=== PATIENT | male | born 1980 | race Caucasian/White ===

== ENCOUNTER 2016-10-05 03:31 | Inpatient (IN) | payer OTHER ==
[~2016-10-05] VITALS: Ht 180.3 cm; Wt 108.9 kg
[~2016-10-05 03:31] MED LIST: CYCLOBENZAPRINE5 M2 PO; FERROUS SULFAT325 M3 PO; MOBIC7.5 M1 PO; MOTRIN800 MG PO; OXYCODONE HCL10 M2 PO; PERCOCET 325 MG1 TA2 PO; PERCOCET 5-3251 EACH PO; TRAMADOL HCL50 M1 PO
--- NOTE | 2016-10-05 12:25 | Operative Report ---
Operative/Inv Procedure Report Surgery Date: 10/05/16 Name of Procedure: Left total hip arthroplasty Pre-Operative Diagnosis: Avascular necrosis left hip Post-Operative Diagnosis: Same with final pathology pending Estimated Blood Loss: 150cc Surgeon/Stacker Attendant: DEVAN TAYLOR,Cristiano BOWERS PA Anesthesia: general endotracheal tube Implants: James secure fit size 7 femoral stem 127 neck angle 36+0 Biolox femoral head 54 Trident acetabular Drains: None none Specimens: Femoral head and acetabular reamings Complications: None Condition: Stable Operative Indication: Patient is a 36-year-old man with a diagnosis of avascular necrosis based on x- rays and MRI. He was treated conservatively for a period of time with medications and activity modifications. He also underwent left hip core decompression. Patient had ongoing symptoms with only minimal relief from this procedure. He also had developed gradually worsening mechanical symptoms. 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 He wished to proceed with total hip arthroplasty after risks, benefits and expectations were discussed which included but were not limited to persistent hip pain, need for subsequent surgery, infection, DVT, anesthesia risks, injury to blood vessel or nerve, leg length discrepancy and dislocation Operative/Procedure Note Note: Patient was brought to the operating room and transferred to the operating table. Once under appropriate anesthesia the patient was placed in a right lateral decubitus position with all bony pop prominences well padded. Axillary roll was placed. The left lower extremity was prepped and draped in standard fashion preoperative IV antibiotics were given prophylactically. A standard lateral incision was made for anticipated superior approach to the hip. The incision was taken down sharply to the underlying fascia. The gluteus elvis muscle was split. Retractors were placed hip was internally rotated placing the external rotators on tension. The piriformis was dissected off of the femoral attachment and reflected posteriorly. The interval between the gluteus minimus tendon and superior capsule was identified and a retractor was placed in this interval. A retractor was placed superiorly and inferiorly. A central portion of the capsule was incised and reflected posteriorly. Superior and inferior portions of the capsule were excised. Hip was dislocated. There was a deformity consistent with avascular necrosis of the femoral head. There was collapsed articular cartilage over these defects. The femoral neck cut was then made based on preoperative templating and intraoperative measurements. I was unable to expose the acetabulum with an anterior retractor and inferior retractor. Remnants of the labral tissues and soft tissues were excised from the fossa. I then started reaming with a size 46 and reamed up to a size 53 for anticipated insertion of a size 54 acetabulum. I use a 52 trial to confirm circumferential reaming. I was satisfied with this. The definitive size 54 acetabulum was impacted in place after copious irrigation was completed. I had excellent scratch fit. I placed 2 screws in the safe zone. The position of the acetabular component was confirmed based on patient's anatomy as well as the Bandy tower guide. I was satisfied with the abduction and forward flexion of the cup. Copious irrigation followed. I then placed the definitive size polyethylene component to accept a 36 mm femoral head. A lap sponges placed in the fossa to protect the polyethylene during preparation of the femur. The locking mechanism of the polyethylene was confirmed as well prior to doing this. I then internally rotated the femur and flexed the femur. Retractors were placed. I then use a box osteotome to lateralize my insertion site. I then used hand reamers up to a size 6. I needed to use power reaming due to patient' s strong bone and relatively small canal. I reamed up to a size 7. I broached to a size 7. I left the last broach in place with excellent scratch fit. I then proceeded to do a trial reduction with a 127 neck angle and a 36 mm femoral head. I was satisfied with the cheondoism of the length based on my intraoperative measurements and my preoperative templating. I was satisfied with the stability in all planes. No evidence of anterior instability with simultaneous extension and external rotation. No evidence of posterior instability to simultaneous internal rotation adduction and forward flexion to greater than 90. I then removed all trial components copious irrigation followed. The definitive size 7 secure fit femoral stem was impacted in place. This had a 127 neck angle area I was satisfied with the scratch fit. I dried the trunnion and placed the 36+0 Biolox femoral head in place the locking mechanism was confirmed. Copious irrigation followed the hip was reduced. Excellent stability in all planes. I then copiously irrigated at every level of closure. The posterior capsule and piriformis were repaired. Fascia was closed with interrupted #1 Vicryl suture. Subcutaneous tissues closed in 2 layers with 2-0 Vicryl due to the depth of the wound. Skin was closed with jodie. Appropriate dressings were applied and patient was awakened and taken to recovery room in good condition. No intraoperative complications. Blood loss was 150 mL Discharge Disposition: PACU
--- NOTE | 2016-10-05 13:17 | RADIOLOGY REPORT ---
EXAMINATION: XR HIP, LEFT CLINICAL INFORMATION: Postoperative left hip replacement COMPARISON: 04/23/2016 TECHNIQUE: Left hip radiographs, single AP view (patient supine position) FINDINGS: The components of the left total hip arthroplasty are in their expected positions. The femoral head prosthesis is well centered within the acetabular cup, which is stabilized by two superior screws. The tip of the femoral stem is well-positioned within the proximal femoral diaphysis. No evidence of acute periprosthetic fracture. The visualized left pelvic bones are intact. Mild amount of postoperative soft tissue tissue gas is seen at the left hip. There are lateral skin jodie in place. IMPRESSION: The components of the left total hip arthroplasty are in satisfactory position.
[2016-10-05 14:45] VITALS: BP 122/68
--- NOTE | 2016-10-05 14:47 | PN- Orthopedic ---
Subjective Subjective: The patient was seen this afternoon postoperatively. He reports his pain is under adequate control with current pain regiment. He is eager to work with physical therapy has no other complaints at the current time. Objective Vital Signs and I&Os Vital signs: Blood pressure 120/75, pulse 88, O2 saturation 95% on 3 L of oxygen via nasal cannula, temperature 98.7. I's and O's: 1900 ML's in of lactated Ringer's/210 ML's of urine out via Victor catheter/EBL 100 Physical Exam: Gen.: Alert and in obvious distress Skin: Warm and dry Cardiac: S1-S2 regular Pulmonary:: Bilateral breath sounds are equal with good exchange Extremities: Bilateral lower extremities are warm without calf tenderness or significant edema. Gross motor and sensory were intact. Left hip surgical dressing is clean, dry, and intact. Assessment/Plan Assessment/Plan Assessment: 36-year-old male status post left total hip arthroplasty. Postoperative patient is progressing as expected and his pain is under adequate control. Plan: Continue IV fluids and Victor catheter until the morning Advance diet as tolerated Out of bed with physical therapy patient is weightbearing as tolerated Strict I's and O's GI and DVT prophylaxis Will get 5 mg of Coumadin 1 dose tonight Follow-up morning laboratory studies and repeat dose Coumadin based on INR between 2 and 3 Continue current pain regiment Core Measures/Miscellaneous Victor Catheter Date In: 10/05/16 Still Needed? Yes Venous Thromboembolism VTE Risk Factors: Surgery VTE Contraindications: No Contraindications VTE Prophylaxis Ordered Inpt: Mech & Pharm VTE Diagnosis: No Beta Catalion Is Beta Catalino a Home Med? No Antibiotics Is Patient on Antibiotics? Yes If Yes: prophylaxis
[2016-10-05 16:56] VITALS: BP 116/80
[2016-10-05 19:07] VITALS: BP 120/70
[2016-10-05 21:16] VITALS: BP 120/80
[2016-10-06 01:17] VITALS: BP 116/82
[2016-10-06 05:25] VITALS: BP 120/70
[2016-10-06 08:05] LABS: ABSOLUTE BASOPHIL COUNT 0 /CUMM (0.0-0.2); ABSOLUTE EOSINOPHIL COUNT 0.1 /CUMM (0.0-0.7); ABSOLUTE GRANULOCYTE CT 7.2 /CUMM (1.4-6.5); ABSOLUTE LYMPH COUNT 2.4 /CUMM (1.2-3.4); ABSOLUTE MONOCYTE COUNT 1.3 /CUMM (0.10-0.60); BASOPHIL % 0.4 % (0.0-2.0); EOSINOPHIL % 1.1 % (0-5); GRANULOCYTE % 65.1 % (42.2-75.2); HEMATOCRIT 35.3 % (42-52); MEAN CORPUSCULAR HGB 31.7 PG (27.0-31.0); MEAN CORPUSCULAR HGB CONC 34.5 G/DL (33.0-37.0); MEAN CORPUSCULAR VOLUME 91.8 FL (80.0-94.0); MEAN PLATELET VOLUME 7.6 FL (7.4-10.4); PLATELET COUNT 213 /CUMM (130-400); RBC DISTRIBUTION WIDTH 12.9 % (11.5-14.5); RED BLOOD CELL CT 3.85 /CUMM (4.70-6.10); WHITE BLOOD CELL COUNT 11.1 /CUMM (4.8-10.8)
[2016-10-06 08:17] LABS: PT 11.5 SEC (9.4-12.5)
--- NOTE | 2016-10-06 08:17 | PN- Orthopedic ---
See Addendum Subjective Subjective: NAEO. Patient without new c/o. Pain not well controlled overnight and did not sleep well. Pain is improved at this time. Denies numbness/tingling in LLE. Tolerating diet without n/v. +flatus, no BM. Ambualted with PT yesterday. Denies CP/SOB. Objective Vital Signs and I&Os Vital Signs Date Time Temp Pulse Resp B/P Pulse O2 O2 Flow FiO2 Ox Delivery Rate 10/06 0525 98.2 86 18 120/70 93 Room Air 10/06 0117 98.4 90 18 116/82 94 Room Air 10/05 2116 98.3 88 20 120/80 93 Room Air 10/05 1907 98.8 107 20 120/70 94 Room Air 10/05 1656 98.3 103 20 116/80 92 Room Air 10/05 1445 Nasal 3.0L Cannula 10/05 144 97.4 102 20 122/68 97 Nasal 3.0L Cannula Intake & Output 10/06 1600 10/06 0800 10/06 0000 10/05 1600 10/05 0800 10/05 0000 Intake Total 1650 Output Total 1550 1200 Balance -1550 450 Intake, IV 850 Intake, Oral 800 Output, Urine 1550 1200 Patient 240 lb Weight Physical Exam: General: NAD, comfortable, A&Ox3 Chest: NRD, breathing comforably on RA. Heart S1S2 normal. Abdomen: soft, nontender, nondistended. Ext: Left hip dressing c/d/i. Left thigh softly swollen, compartments soft. No calve swelling/TTP, neurovascularly intact bilateral lower extremities Current Medications: Current Medications Sig/Femi Start time Last Medication Dose Route Stop Time Status Admin Acetaminophen 1,000 MG .STK-MED ONE 10/05 928 DC IV 10/05 929 Al Hydroxide/Mg 30 ML Q6P PRN 10/05 144 AC Hydroxide PO Dexamethasone 4 MG .STK-MED ONE 10/05 929 DC IM 10/05 09 Dextrose/Lactated 1,000 ML Q13H 10/05 144 AC 10/06 Ringer's IV 0345 Docusate Sodium 100 MG DAILY NEEDED PRN 10/05 144 AC PO Fentanyl Citrate 100 MCG .STK-MED ONE 10/05 927 DC IM 02/13 0929 Fentanyl Citrate 250 MCG .STK-MED ONE 10/05 0928 DC IM 10/05 0929 Hydromorphone HCl 2 MG .STK-MED ONE 10/05 1231 DC IM 10/05 1232 Hydromorphone HCl 2 MG .STK-MED ONE 10/05 0928 DC IM 10/05 09 Midazolam HCl 2 MG .STK-MED ONE 10/05 0929 DC IM 10/05 0930 Morphine Sulfate 2 MG Q3P PRN 10/05 1445 AC IV Morphine Sulfate 4 MG Q3P PRN 10/05 1445 AC 10/06 IV 0600 Ondansetron HCl 4 MG Q6P PRN 10/05 1445 AC IV Oxycodone/ 1 TAB Q4P PRN 10/05 1445 AC 10/05 Acetaminophen PO 1743 Oxycodone/ 2 TAB Q4P PRN 10/05 1445 AC 10/06 Acetaminophen PO 0752 Polyethylene Glycol 17 GM DAILY NEEDED PRN 10/05 1445 AC PO Senna/Docusate Sodium 2 TAB AT BEDTIME NEED.. 10/05 1445 AC PO Tranexamic Acid 1,000 MG .STK-MED ONE 10/05 0930 DC IV 10/05 0931 Vancomycin HCl 1,000 MG ONCE ONE 10/05 2200 DC 10/05 Dextrose/Water 250 ML IV 10/05 2259 2131 Vancomycin HCl 1,000 MG ONCE 10/05 0000 DC Dextrose/Water 250 ML IV 10/05 2359 Warfarin Sodium 5 MG COUMADIN 1700 ONE 10/05 1700 DC 10/05 PO 10/05 1701 1601 Results Last 48 Hours of Labs: Laboratory Tests 10/06 0625 Chemistry Sodium (137 - 145 mmol/L) 140 Potassium (3.5 - 5.1 mmol/L) 3.8 Chloride (98 - 107 mmol/L) 103 Carbon Dioxide (22 - 30 mmol/L) 25 Anion Gap (5 - 16) 12 BUN (9 - 20 mg/dL) 9 Creatinine (0.7 - 1.2 mg/dL) 0.7 Estimated GFR (>60 ml/min) Pending BUN/Creatinine Ratio (7 - 25 %) 12.9 Coagulation PT Pending INR Pending Hematology CBC w Diff Pending WBC Pending RBC Pending Hgb Pending Hct Pending MCV Pending MCH Pending RDW Pending Plt Count Pending MPV Pending PUBS MCHC Pending Assessment/Plan Assessment/Plan 36yo M POD#1 s/p left total hip arthroplasty. AVSS, patient progressing well. - pain control - PRN zofran - bowel regimen - I/O's - DC IVF - OOB with PT - f/u INR, dose coumadin for INR 2-3 - ALPS - possibly dc home today if cleared by PT - Will d/w attending Core Measures/Miscellaneous Victor Catheter Date In: 10/05/16 Venous Thromboembolism VTE Risk Factors: Surgery VTE Contraindications: No Contraindications VTE Prophylaxis Ordered Inpt: Mech & Pharm VTE Diagnosis: No Beta Catalino Is Beta Catalino a Home Med? No Antibiotics Is Patient on Antibiotics? No
--- NOTE | 2016-10-06 08:27 | Patient Discharge Instructions ---
Discharge Instructions General Discharge Information You were seen/treated for: Left hip AVN You had these procedures: 10/06/16 Left total hip arthroplasty Watch for these problems: Redness, swelling, fever, signs of infection. Uncontrolled pain, Excessive bleeding. Decreased range of motion or unable to bear weight. Chest pain, shortness of breath. Call Surgeon to remove: [place] (14 days) Do not soak the wound: Yes No bath, but you may shower: Yes Other wound care: Daily dressing changes starting 10/07/16 Diet Continue normal diet: Yes Activity Activity Self Limited: Yes Activity Limited to: Weight bear as tolerated Additional ACTIVITY Info: No running or jogging. Hip precautions. Acute Coronary Syndrome Inclusion Criteria At DC or during hospital stay patient has or had the following: ACS DIAGNOSIS No Discharge Core Measures Meds if any: Prescribed or Continued at Discharge Meds if any: NOT Prescribed or Continued at Discharge Congestive Heart Failure Inclusion Criteria At DC or during hospital stay patient has or had the following: CHF DIAGNOSIS No Discharge Core Measures Meds if any: Prescribed or Continued at Discharge Meds if any: NOT Prescribed or Continued at Discharge Cerebrovascular accident Inclusion Criteria At DC or during hospital stay patient has or had the following: CVA/TIA Diagnosis No Discharge Core Measures Meds if any: Prescribed or Continued at Discharge Meds if any: NOT Prescribed or Continued at Discharge Venous thromboembolism Inclusion Criteria VTE Diagnosis No VTE Type NONE VTE Confirmed by (Test) NONE Discharge Core Measures - Per Current guidelines, there needs to be overlap - treatment for the first 5 days of Warfarin therapy. - If discharged on Warfarin prior to 5 days of - overlap therapy, the patient will need to be - assessed for post discharge needs including - *Post discharge parental anticoagulation - *Warfarin and/or parental anticoagulation education - *Follow up date to check INR post discharge At least 5 days overlap therapy as Inpatient No Meds if any: Prescribed or Continued at Discharge Note: Overlap Therapy is Warfarin and Anticoagulant Meds if any: NOT Prescribed or Continued at Discharge
[2016-10-06] MEDS ORDERED: COLACE100 M1 PO (08:28)
[2016-10-06] MEDS ORDERED: OXYCODONE HCL5 M1 PO (08:28)
[2016-10-06] MEDS ORDERED: COUMADIN5 M2 PO (08:28)
[2016-10-06] MEDS ORDERED: RW (08:30)
--- NOTE | 2016-10-06 08:33 | Surg Short-stay <48hrs Dis Sum ---
Visit Information Visit Dates Admission Date: 10/05/16 Discharge Date: 10/06/16 Surgical Short Stay DC Summary Admission Diagnosis: Left hip avascular necrosis Final Diagnosis: Left hip avascular necrosis Procedure(s): 10/05/2016 Left total hip arthroplasty Summary/Significant Findings: Patient admitted to floor following procedure below. Patient ambulated with PT upon arrival to the floor. Patient continued to progress well. Upon discharge patient is afebrile, tolerating diet, pain controlled, ambulating well with rolling walker and PT. Condition at Discharge: Good Discharge Disposition: home health services Discharge instructions provided to patient/family: Yes Post discharge follow-up plan: Call office to schedule/confirm appointment
[2016-10-06 09:00] VITALS: BP 122/84
[2016-10-06] MEDS ORDERED: OXYCONTIN20 M1 PO (12:26)
[2016-10-06 13:00] VITALS: BP 126/82
== END 2016-10-06 15:35 | disposition home health service (06) | DRG 301 ==
LOC: ENRESERVTM → ENRESERVDT → SDA 03:31 → ENPENDDIS 03:31 → 2NA 14:24
PROVIDERS: Physician Assistant Surgical; ADMIT Orthopaedic Surgery
PROC: 0SRB04A Replacement of Left Hip Joint with Ceramic on Polyethylene Synthetic Substitute, Uncemented, Open Approach (ICD-10-PCS; principal; 2016-10-05)
DX: M87.352 Other secondary osteonecrosis, left femur (principal); I10 Essential (primary) hypertension; F17.210 Nicotine dependence, cigarettes, uncomplicated
CPT/HCPCS: 2NAP; 36415; 73501; 82436; 87086; 88305; 97110-GO; 97116-GO; 97161-GP; 97530-GO; J0131; J0171; J1100; J1885; J2405; J2795; J3370; J7060

== ENCOUNTER 2016-11-25 20:40 | Emergency (ER) | payer OTHER ==
[~2016-11-25] VITALS: Ht 182.9 cm; Wt 108.9 kg
[~2016-11-25 20:40] MED LIST changes: +COLACE100 M1 PO; +COUMADIN5 M2 PO; +OXYCODONE HCL5 M1 PO; +OXYCONTIN20 M1 PO; +RW
--- NOTE | 2016-11-25 21:12 | ED HAND/WRIST INJURY COMPLAINT ---
See Addendum History of Present Illness General Chief Complaint: Hand or Wrist Injury Stated Complaint: R HAND INJURY Source: patient Exam Limitations: no limitations Vital Signs & Intake/Output Vital Signs & Intake/Output Vital Signs Date Time Temp Pulse Resp B/P Pulse O2 O2 Flow FiO2 Ox Delivery Rate 11/25 2058 99.0 101 20 102/78 96 Room Air Allergies Coded Allergies: Penicillins (Severe, ANAPHYLAXIS 04/23/16) Reconcile Medications Cyclobenzaprine HCl 5 MG TABLET 1 TAB PO TIDPRN PAIN (Reported) Doxycycline Hyclate 100 MG CAPSULE 1 CAP PO BID prophylaxis Meloxicam 7.5 MG TABLET 1 TAB PO DAILY PAIN (Reported) Oxycodone HCl 5 MG TABLET 1 TAB PO BIDP PRN PAIN (Reported) Triage Note: RECEIVED 36 YO MALE C/O HE SMASHED THE TIP OF HIS RIGHT PINKY FINGER WITH A HAMMER ABOUT 8:30 AM TODAY. PT REPORTS FINGERNAIL CUT INTO FINGER. FULL ROM NOTED TO FINGER. Triage Nurses Notes Reviewed? yes Occurred: this morning Duration: hour(s): (12) Timing: no prior history Injury Environment: home Severity: moderate Severity Numbers: 6 Pain/Injury Location: Right: 5th finger. Context: crush Modifying Factors: Improves With: immobilization. Worsens With: movement. HPI: Patient is a 36-year-old male presenting to the emergency Department chief complaint of right fifth finger pain, bleeding since this morning around 8 AM. He reports that he was on a ladder and actually slipped and hit his right pinky finger with a hammer. Pain is achy throbbing worse with movement. Decided to come in for evaluation. Denies taking anything for pain prior to arrival. No numbness or tingling. Denies any other injury. Past History Travel History Traveled to [place] past 21 day No Medical History Any Pertinent Medical History? see below for history Neurological: NONE EENT: NONE Cardiovascular: hypertension, syncope Respiratory: NONE Gastrointestinal: GERD Hepatic: NONE Renal: NONE Musculoskeletal: VASCULAR NECROSIS BI. HIP Psychiatric: NONE Endocrine: NONE Blood Disorders: NONE Cancer(s): NONE CARPENTER BRIDGE/Reproductive: NONE History of MRSA: No History of VRE: No History of CDIFF: No Surgical History Surgical History: core decompression of left hip due to avascular necrosis. Psychosocial History Who do you live with Significant Other What is your primary language Syrian Tobacco Use: Current Daily Use Daily Tobacco Use Amount/Type: => 5 Cigarettes daily Family History Hx Contributory? No Review of Systems Review of Systems Constitutional: Reports: no symptoms. Comments Review of systems: See HPI, All other systems negative. Constitutional, no chills fever or weight loss HEENT: No visual changes no sore throat no congestion Cardiovascular: No chest pain Skin, no jaundice no rashes Respiratory: No dyspnea cough sputum or hemoptysis GI: No nausea no vomiting Muscle skeletal: no back pain, no neck pain, Neurologic: No numbness Immunology: No splenectomy or history of AIDS Physical Exam Physical Exam General Appearance: well developed/nourished, no apparent distress, alert, awake , comfortable Hand Left: normal inspection, normal range of motion Hand Right: lacerations Comments: Well-developed well-nourished no apparent distress. HEENT: Atraumatic, extraocular motion intact Neck: Supple, no lymphadenopathy Back: Nontender Respiratory: No respiratory distress Extremities: Moderate edema noted to the distal tip of the right fifth finger, full range of motion. Nail is in place, small amount of bleeding on both sides of the nail. Radial pulses are 2+ in the upper extremities bilaterally. Neuro: Alert and oriented x3 Psych: Mood affect normal, normal memory normal judgment. Progress Differential Diagnosis: finger fracture, laceration, abrasion, nail avulsion, dislocation, contusion Plan of Care: Current Medications Sig/Femi Start time Last Medication Dose Stop Time Status Admin Doxycycline Hyclate 100 MG ONCE ONE 11/25 2214 UNVr (Vibramycin) 11/26 2215 Diagnostic Imaging: Viewed by Me: Radiology Read. Discussed w/RAD: Radiology Read. Radiology Impression: PATIENT: MABEL AQUINO PRESENT AGE: 36 PATIENT ACCOUNT NO: [id number] : 81 LOCATION: [facility] ORDERING PHYSICIAN: TEE AMADOR SERVICE DATE: 11/25/16 EXAM TYPE: RAD - XRY-FINGERS, RIGHT EXAMINATION: XR FIFTH FINGER, RIGHT CLINICAL INFORMATION: Right fifth finger injury. COMPARISON: None. TECHNIQUE: 4 views of the right fifth finger. FINDINGS: Multiple views of the right fifth finger demonstrate a minimally displaced fracture involving the distal tuft of the right fifth finger. This fracture is visualized along the palmar aspect of the digit. There is moderate soft tissue swelling surrounding the digit. No radiopaque foreign bodies. No extension of the fracture into the joint spaces and no subluxation or dislocation of the right fifth finger. IMPRESSION: Acute fracture involving the distal tuft of the right fifth finger, along the palmar aspect of the digit. No appreciable extension of the fracture into the joint space is no appreciable subluxation or dislocation of the digit. Moderate soft tissue swelling surrounding the digit. Comments: Patient has tuff fracture on x-ray. Nail is intact. Patient will be treated prophylactically with antibiotics for questionable open fracture. Dressed with Xeroform, bacitracin and splinted. He'll follow up with orthopedics. Departure Departure Time of Disposition: 2153 Disposition: HOME OR SELF CARE Condition: Stable Clinical Impression Primary Impression: Closed fracture of tuft of distal phalanx of finger Qualifiers: Encounter type: initial encounter Qualified Code: S62.639A - Displaced fracture of distal phalanx of unspecified finger, initial encounter for closed fracture Referrals: PATIENT HAS NO PRIMARY CARE DR (PCP/Family) EMMY TAYLOR,LEOBARDO Brown Additional Instructions: Follow-up with orthopedics call to make an appointment. Make sure recall the orthopedic bed planning on doing her hip surgery on Wednesday to let them know about this finger fracture and the fact that you're on antibiotics. Keep finger elevated and ice several times a day to help without swelling. Return for worsening symptoms or concerns. Departure Forms: Customer Survey General Discharge Information Prescriptions: Current Visit Scripts Doxycycline Hyclate 1 CAP PO BID #14 CAP Procedures Splinting Location: right fifth finger Manual Alignment Performed: No Pre-Made Type: metal Splint: finger splint Splint Applied By: splint applied by me Pre-Proc Neuro Vasc Exam: normal Post-Proc Neuro Vasc Exam: normal Progress: Tolerated procedure well.
[2016-11-25] MEDS ORDERED: MELOXICAM7.5 M1 PO (21:18)
[2016-11-25] MEDS ORDERED: CYCLOBENZAPRINE5 M2 PO (21:19)
[2016-11-25] MEDS ORDERED: OXYCODONE HCL5 M1 PO (21:19)
[2016-11-25] MEDS ORDERED: KEFLEX500 M1 PO (21:57)
--- NOTE | 2016-11-25 21:57 | RADIOLOGY REPORT ---
EXAMINATION: XR FIFTH FINGER, RIGHT CLINICAL INFORMATION: Right fifth finger injury. COMPARISON: None. TECHNIQUE: 4 views of the right fifth finger. FINDINGS: Multiple views of the right fifth finger demonstrate a minimally displaced fracture involving the distal tuft of the right fifth finger. This fracture is visualized along the palmar aspect of the digit. There is moderate soft tissue swelling surrounding the digit. No radiopaque foreign bodies. No extension of the fracture into the joint spaces and no subluxation or dislocation of the right fifth finger. IMPRESSION: Acute fracture involving the distal tuft of the right fifth finger, along the palmar aspect of the digit. No appreciable extension of the fracture into the joint space is no appreciable subluxation or dislocation of the digit. Moderate soft tissue swelling surrounding the digit.
[2016-11-25] MEDS ORDERED: DOXYCYCLINE HY100 M2 PO (22:01)
[2016-11-25 22:09] VITALS: BP 105/88
== END 2016-11-25 22:10 ==
LOC: ERH 20:40
DX: S62.636A Displaced fracture of distal phalanx of right little finger, initial encounter for closed fracture (principal); W22.8XXA Striking against or struck by other objects, initial encounter; Y93.89 Activity, other specified; Y92.9 Unspecified place or not applicable
CPT/HCPCS: 73140-RT

== ENCOUNTER 2016-11-30 01:13 | Inpatient (IN) | payer OTHER ==
[~2016-11-30] VITALS: Ht 182.9 cm; Wt 108.9 kg
[~2016-11-30 01:13] MED LIST changes: +DOXYCYCLINE HY100 M2 PO; +KEFLEX500 M1 PO; +MELOXICAM7.5 M1 PO
--- NOTE | 2016-11-30 16:55 | PN- Orthopedic ---
Subjective Subjective: POST-OP NOTE (patient currently in pacu) Reports some right hip discomfort. No dizziness. No shortness of breath. No chest pains. Reports completing a week long duration of doxycycline for open fracture of his right 5th finger. Currently in pacu awaiting transfer upstairs. Objective Vital Signs and I&Os pacu sheet reviewed (vss) Physical Exam: General - alert & oriented x 3. comfortable. no acute distress. Lungs - clear bilaterally. no w/r/r. Cardiac - s1s2. reg. Abdomen - soft. nontender. - zamora draining clear, yellow urine. Extremities - R hip dressing c/d/i. no hematoma. nvi. calves soft and nontender b/l. Assessment/Plan Assessment/Plan This 36 year old white male is POD#0 s/p right total hip replacement advance as tolerated pain control as ordered (oxycodone CR / percocet) vanco x 1 carroll-operatively coumadin 5 mg tonight f/u labs in am remove zamora in am PT eval dressing change POD#2 will d/w Core Measures/Miscellaneous Venous Thromboembolism VTE Risk Factors: Surgery VTE Contraindications: No Contraindications VTE Diagnosis: No Beta Catalino Is Beta Catalino a Home Med? No Antibiotics Is Patient on Antibiotics? Yes If Yes: prophylaxis
--- NOTE | 2016-11-30 17:41 | RADIOLOGY REPORT ---
EXAMINATION: XR HIP, RIGHT CLINICAL INFORMATION: Status post right total hip arthroplasty. COMPARISON: None TECHNIQUE: Single AP view of the right hip. FINDINGS: A right total hip arthroplasty is present in expected position. No hardware complication is seen. Alignment is normal. IMPRESSION: Expected appearance status post right JOSEPH.
[2016-11-30 18:13] VITALS: BP 162/88
[2016-11-30 21:41] VITALS: BP 150/70
[2016-12-01 00:13] VITALS: BP 130/94
[2016-12-01 01:48] VITALS: BP 120/80
[2016-12-01 07:59] LABS: ABSOLUTE BASOPHIL COUNT 0 /CUMM (0.0-0.2); ABSOLUTE EOSINOPHIL COUNT 0.2 /CUMM (0.0-0.7); ABSOLUTE GRANULOCYTE CT 6.2 /CUMM (1.4-6.5); ABSOLUTE MONOCYTE COUNT 0.9 /CUMM (0.10-0.60); BASOPHIL % 0.3 % (0.0-2.0); EOSINOPHIL % 1.6 % (0-5); GRANULOCYTE % 67.3 % (42.2-75.2); HEMATOCRIT 36.5 % (42-52); MEAN CORPUSCULAR HGB 30.7 PG (27.0-31.0); MEAN CORPUSCULAR HGB CONC 33.9 G/DL (33.0-37.0); MEAN CORPUSCULAR VOLUME 90.5 FL (80.0-94.0); MEAN PLATELET VOLUME 7.4 FL (7.4-10.4); PLATELET COUNT 238 /CUMM (130-400); RBC DISTRIBUTION WIDTH 13.4 % (11.5-14.5); RED BLOOD CELL CT 4.04 /CUMM (4.70-6.10); WHITE BLOOD CELL COUNT 9.3 /CUMM (4.8-10.8)
--- NOTE | 2016-12-01 08:02 | PN- Orthopedic ---
See Addendum Subjective Subjective: POD #1 s/p right THR for AVN. Resting comfortably in bed just getting off phone , although states pain 03/01. Nauseated and vomited overnight after diet gingerale, but none since. Denies F/C, CP/SOB. Yet to ambulate. Is due to void spontaneously (zamora removed early this morning). Objective Vital Signs and I&Os Vital Signs Date Time Temp Pulse Resp B/P Pulse O2 O2 Flow FiO2 Ox Delivery Rate 12/01 0148 99.2 88 20 120/80 93 Room Air 12/01 0013 98.0 94 20 130/94 95 Room Air 11/30 2141 97.6 90 20 150/70 92 Room Air 11/30 1813 97.4 100 20 162/88 90 Room Air Intake & Output 12/01 1600 12/01 0800 12/01 0000 11/30 1600 11/30 0800 11/30 0000 Intake Total 1400 Output Total 2100 1300 Balance -700 -1300 Intake, IV 600 Intake, Oral 800 Output, Urine 2100 1300 Patient 240 lb Weight Physical Exam: Gen: AAOx3 in NAD Cor: S1+S2+ Lungs: CTA stefani Abd: soft, NT, ND, +Bs x4 Ext: right hip dressing C/D/I. Thigh and calf compartment soft. Palpable DP/PT pulses stefani. Feet warm, sensation intact. Dorsiflexion and plantar flexion intact. Current Medications: Current Medications Sig/Femi Start time Last Medication Dose Route Stop Time Status Admin Acetaminophen 1,000 MG .STK-MED ONE 11/30 1204 DC IV 11/30 1205 Al Hydroxide/Mg 30 ML Q6P PRN 11/30 1699 AC Hydroxide PO Dextrose/Lactated 1,000 ML Q13H 11/30 170 DC 11/30 Ringer's IV 2056 Docusate Sodium 100 MG BID 11/30 2199 AC 11/30 PO 2054 Docusate Sodium 100 MG DAILY NEEDED PRN 11/30 1699 DC PO Fentanyl Citrate 250 MCG .STK-MED ONE 11/30 1203 DC IM 11/30 1204 Hydromorphone HCl 2 MG .STK-MED ONE 11/30 1628 DC IM 11/30 1629 Hydromorphone HCl 2 MG .STK-MED ONE 11/30 1602 DC IM 11/30 1603 Hydromorphone HCl 2 MG .STK-MED ONE 11/30 1202 DC IM 11/30 1203 Midazolam HCl 2 MG .STK-MED ONE 11/30 1203 DC IM 11/30 1204 Morphine Sulfate 2 MG Q3P PRN 11/30 1700 AC IV Morphine Sulfate 4 MG Q3P PRN 11/30 1700 AC 12/01 IV 0622 Nicotine 14 MG DAILY 11/30 2045 AC 11/30 TOP 2224 Ondansetron HCl 4 MG Q6P PRN 11/30 170 AC 11/30 IV 2010 Oxycodone HCl 20 MG Q12 11/30 2200 AC 11/30 PO 2055 Oxycodone/ 1 TAB Q4P PRN 11/30 170 AC Acetaminophen PO Oxycodone/ 2 TAB Q4P PRN 11/30 1700 AC 12/01 Acetaminophen PO 0802 Polyethylene Glycol 17 GM DAILY 12/01 1000 UNVr PO Polyethylene Glycol 17 GM DAILY NEEDED PRN 11/30 1700 DC PO Senna/Docusate Sodium 2 TAB AT BEDTIME NEED.. 11/30 170 AC PO Tranexamic Acid 1,000 MG .STK-MED ONE 11/30 1203 DC IV 11/30 1204 Vancomycin HCl 1,000 MG ONCE ONE 12/01 0200 DC 12/01 Sodium Chloride 250 ML IV 12/01 0259 0022 Vancomycin HCl 1,000 MG ONCE 11/30 0000 DC Sodium Chloride 250 ML IV 11/30 2359 Warfarin Sodium 5 MG COUMADIN 1700 ONE 11/30 1700 DC 11/30 PO 11/30 1701 1843 Results Last 48 Hours of Labs: Laboratory Tests 12/01 0650 Chemistry Sodium Pending Potassium Pending Chloride Pending Carbon Dioxide Pending Anion Gap Pending BUN Pending Creatinine Pending BUN/Creatinine Ratio Pending Coagulation PT Pending INR Pending Hematology CBC w Diff NO MAN DIFF REQ WBC (4.8 - 10.8 /CUMM) 9.3 RBC (4.70 - 6.10 /CUMM) 4.04 L Hgb (14.0 - 18.0 G/DL) 12.4 L Hct (42 - 52 %) 36.5 L MCV (80.0 - 94.0 FL) 90.5 MCH (27.0 - 31.0 PG) 30.7 RDW (11.5 - 14.5 %) 13.4 Plt Count (130 - 400 /CUMM) 238 MPV (7.4 - 10.4 FL) 7.4 Gran % (42.2 - 75.2 %) 67.3 Lymphocytes % (20.5 - 51.1 %) 21.2 Monocytes % (1.7 - 9.3 %) 9.6 H Eosinophils % (0 - 5 %) 1.6 Basophils % (0.0 - 2.0 %) 0.3 Absolute Granulocytes (1.4 - 6.5 /CUMM) 6.2 Absolute Lymphocytes (1.2 - 3.4 /CUMM) 2.0 Absolute Monocytes (0.10 - 0.60 /CUMM) 0.9 H Absolute Eosinophils (0.0 - 0.7 /CUMM) 0.2 Absolute Basophils (0.0 - 0.2 /CUMM) 0 PUBS MCHC (33.0 - 37.0 G/DL) 33.9 Assessment/Plan Assessment/Plan A: POD #1 s/p right THR; AVSS. Plan: Due to void. Stop IVF. PT/OT today. Case management to see for dispo plans. Dressing change tomorrow. Regular diet. Core Measures/Miscellaneous Venous Thromboembolism VTE Risk Factors: Surgery VTE Contraindications: No Contraindications VTE Diagnosis: No Beta Catalino Is Beta Catalino a Home Med? No Antibiotics Is Patient on Antibiotics? Yes If Yes: prophylaxis
[2016-12-01 08:30] LABS: PT 11.8 SEC (9.4-12.5)
[2016-12-01 09:57] VITALS: BP 140/80
[2016-12-01] MEDS ORDERED: OXYCONTIN20 M1 PO (10:09)
[2016-12-01] MEDS ORDERED: COUMADIN5 M2 PO (10:09)
--- NOTE | 2016-12-01 10:29 | Patient Discharge Instructions ---
Discharge Instructions General Discharge Information You were seen/treated for: Right hip pain secondary to avascular necrosis You had these procedures: Right total hip replacement Watch for these problems: Increasing pain, redness, warmth, swelling. Inability to bear weight on right leg. Drainage of any type from incision. Fever greater than 101.5. Do not soak the wound: Yes No bath, but you may shower: Yes Other wound care: Keep wound clean and dry Special Instructions: You are taking a blood thinning medication called Coumadin. Another name for this medication is Warfarin. You will take this every day, however, the dose you take each day is subject to change. It depends on labwork called INR which essentially measures how thin your blood is. Your INR will be checked at a minimum of 2-3 times per week. The results will be sent to Dr. Martínez who will determine how much coumadin you are to be taking each day. Therefore, please await specific instructions regarding your daily doses. Diet Continue normal diet: Yes Recommended Diet: Regular Additional DIET Information: Advance as tolerated Activity Full Activity/No Limits: No Activity Self Limited: Yes Pounds, do NOT lift more than: 10 Additional ACTIVITY Info: Weight bear as tolerated on operative hip No bending greater than 90 degrees at waist No crossing legs Do not flex your leg at the hip and turn your knee inward (flexion and internal rotation) Use your abduction pillow until otherwise instructed by your surgeon. Acute Coronary Syndrome Inclusion Criteria At DC or during hospital stay patient has or had the following: ACS DIAGNOSIS No Discharge Core Measures Meds if any: Prescribed or Continued at Discharge Meds if any: NOT Prescribed or Continued at Discharge Congestive Heart Failure Inclusion Criteria At DC or during hospital stay patient has or had the following: CHF DIAGNOSIS No Discharge Core Measures Meds if any: Prescribed or Continued at Discharge Meds if any: NOT Prescribed or Continued at Discharge Cerebrovascular accident Inclusion Criteria At DC or during hospital stay patient has or had the following: CVA/TIA Diagnosis No Discharge Core Measures Meds if any: Prescribed or Continued at Discharge Meds if any: NOT Prescribed or Continued at Discharge Venous thromboembolism Inclusion Criteria VTE Diagnosis No VTE Type NONE VTE Confirmed by (Test) NONE Discharge Core Measures - Per Current guidelines, there needs to be overlap - treatment for the first 5 days of Warfarin therapy. - If discharged on Warfarin prior to 5 days of - overlap therapy, the patient will need to be - assessed for post discharge needs including - *Post discharge parental anticoagulation - *Warfarin and/or parental anticoagulation education - *Follow up date to check INR post discharge At least 5 days overlap therapy as Inpatient No Meds if any: Prescribed or Continued at Discharge Note: Overlap Therapy is Warfarin and Anticoagulant Meds if any: NOT Prescribed or Continued at Discharge
--- NOTE | 2016-12-01 10:36 | Surgical Discharge Summary ---
Visit Information Visit Dates Admission Date: 11/30/16 Discharge Date: 12/01/2016 History of Present Illness Chief Complaint: Right hip pain secondary to avascular necrosis Medical History Neurological: NONE EENT: NONE Cardiovascular: hypertension, syncope Respiratory: NONE Gastrointestinal: GERD Hepatic: NONE Renal: NONE Musculoskeletal: VASCULAR NECROSIS BI. 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 Psychosocial History Who Do You Live With? Significant Other What is Your Primary Language? Citizen Of [place] Review of Systems: See H&P Hospital Course Course Attending Physician: DEVAN TAYLOR,ROBINSON Primary Care Physician: PATIENT HAS NO PRIMARY CARE DR Hospital Course: Patient was admitted to the hospital for an elective right total hip replacement. He tolerated the procedure well. He was tansferred to the general surgical floor. His diet was advanced and tolerated. His pain was controlled with po pain medication. His vital signs were stable and within normal limits. He was evaluated and treated by physical therapy. He was deemed appropriate for discharge. Allergies: Coded Allergies: Penicillins (Severe, ANAPHYLAXIS 04/23/16) Disposition Summary Disposition Principal Diagnosis: Right hip avascular necrosis Additional Diagnosis: none Discharge Disposition: home health services Discharge Instructions General Discharge Information Code Status: Full Code Patient's Diet: Regular, advance as tolerated Patient's Activity: WBAT on right hip Follow-Up Instructions/Appts: Please call or contact Dr. Martínez office to arrange/confirm follow up appointment to be seen in 2 weeks from date of surgery. Medications at Discharge Discharge Medications: Stop taking the following medications: Cyclobenzaprine HCl (Cyclobenzaprine HCl) 5 MG TABLET ORAL THREE TIMES A DAY NEEDED Qty = 60 Oxycodone HCl (Oxycodone HCl) 5 MG TABLET ORAL 2 x Daily as needed as needed for PAIN Qty = 21 Continue taking these medications: Meloxicam (Meloxicam) 7.5 MG TABLET 1 Tablet ORAL DAILY Qty = 60 Doxycycline Hyclate (Doxycycline Hyclate) 100 MG CAPSULE 1 Capsule ORAL TWICE DAILY Qty = 14 Start taking the following new medications: Oxycodone HCl/Acetaminophen (Percocet 5-325 MG Tablet) 5 MG-325 MG TABLET 1-2 Tablet ORAL Q4-6H as needed for PAIN Qty = 36 No Refills Oxycodone HCl (Oxycontin) 20 MG TAB.ER.12H 1 Tablet ORAL TWICE DAILY Qty = 6 No Refills Warfarin Sodium (Coumadin) 5 MG TABLET 1 Tablet ORAL DAILY Qty = 30 No Refills
[2016-12-01] MEDS ORDERED: OXYCODONE HCL5 M1 PO (14:43)
--- NOTE | 2016-12-01 15:06 | Operative Report ---
Operative/Inv Procedure Report Surgery Date: 11/30/16 Name of Procedure: Right total hip arthroplasty Pre-Operative Diagnosis: Right hip avascular necrosis femoral head Post-Operative Diagnosis: Same with final pathology pending Estimated Blood Loss: 200cc Surgeon/Switch Operators Supervisor: DEVAN TAYLOR,Cristiano BOWERS Anesthesia: general endotracheal tube Implants: James secure fit size 7 femoral stem, size 56 Trident acetabulum 36+0 femoral head Biolox Drains: None Specimens: Femoral head, acetabular reamings Microbiology: Urine Complications: None Condition: Stable Operative Indication: Patient is a 36-year-old man with the diagnosis of avascular necrosis of the right femoral head. Patient had severe collapsing. Conservative measures did not provide any significant relief. He wished to proceed with total hip arthroplasty after risks, benefits and expectations were discussed with but were not limited to persistent hip pain, need for subsequent surgery, loosening, infection, DVT, anesthesia risks, injury to blood vessel or nerve, leg length discrepancy and dislocation. He recently underwent left total hip arthroplasty for the same diagnosis Operative/Procedure Note Note: Patient was brought to the operating room and transferred to the operating table. Once under appropriate anesthesia the patient was placed into a left lateral decubitus position with right side up. All bony pop prominences well- padded. Axillary roll was placed. The right lower extremity was prepped and draped in standard fashion preoperative IV antibiotics were given prophylactically. A standard lateral incision was made for anticipated superior approach to the hip. Incision was taken down sharply to the underlying fascia. The fascia was incised in line with the skin incision. Hip was internally rotated the piriformis was identified and reflected posteriorly. The interval between the gluteus minimus tendon and the superior capsule was identified and a retractor was placed here. I then this retractor inferiorly. A central portion of the posterior capsule was incised and reflected posteriorly for later repair. Inferior portions and superior portions of the posterior capsule were excised. Hip was dislocated. There was deformity of the femoral head. Femoral neck cut was made based on preoperative templating and intraoperative measurements. I then was able to visualize the acetabulum. Remnants of the labral tissues were excised. Any soft tissue was removed from the acetabular fossa. This was followed by reaming using a size 46 reamer up to a size 55 for anticipated insertion of a size 56 acetabulum. Once I was satisfied with the circumferential reaming with the trial 54 I definitively placed the 56 Trident acetabular component the proper anteversion and abduction based on my intraoperative measurements, the [place] tower and my preoperative templating. Excellent scratch fit. I placed 2 screws in the safe zone. And then after copious irrigation I placed the definitive liner for the 36 no medial femoral head. This liner mechanism locking mechanism was confirmed. Copious irrigation followed I then placed a lap sponge to protect the acetabular liner from injury during the preparation of the femur. The femur was essentially rotated and flexed. A femoral elevator was placed underneath the proximal femur and then a box osteotome was used to lateralize my insertion site. This was followed by reaming up to a size 7. I needed power reaming for the last 2 reamers due to the strength of the bone. I then broached up to a size 7. I left the [address] and did a trial reduction. I was satisfied with the stability in all planes. No evidence of anterior instability with simultaneous extension and external rotation. No signs of posterior instability with simultaneous internal rotation adduction and flexion to greater than 90. I then removed all trial components. Copious irrigation of the femoral canal followed I then placed the definitive size 7 secure fit femoral stem with the 127 neck angle. This was impacted in place with excellent scratch fit. I then dried the trunnion and placed the definitive size 36+[address] I used a Biolox to the patient's age. The hip was reduced and then again the stability was confirmed. Once I was satisfied with this copious irrigation followed. Every level of closure was followed by copious irrigation. The posterior capsule and piriformis was repaired. Fascia was closed with interrupted #1 Vicryl sutures. Subcutaneous tissues closed in 2 layers with 2-0 Vicryl and skin was closed jodie. Appropriate just his were applied and patient was awakened and taken to recovery room in good condition. Blood loss was approximately 200 mL Discharge Disposition: PACU
[2016-12-01] MEDS ORDERED: MS CONTIN30 M1 PO (15:23)
== END 2016-12-01 15:30 | disposition home health service (06) | DRG 301 ==
LOC: ENRESERVTM → ENRESERVDT → ENPENDDIS 01:13 → SDA 01:13 → 2NA 01:13 → SDA 07:00 → 2NA 18:06
PROVIDERS: Physician Assistant Surgical; ADMIT Orthopaedic Surgery
PROC: 0SR904A Replacement of Right Hip Joint with Ceramic on Polyethylene Synthetic Substitute, Uncemented, Open Approach (ICD-10-PCS; principal; 2016-11-30)
DX: M87.851 Other osteonecrosis, right femur (principal); E66.9 Obesity, unspecified; Z68.32 Body mass index [BMI] 32.0-32.9, adult; I10 Essential (primary) hypertension; F17.200 Nicotine dependence, unspecified, uncomplicated
CPT/HCPCS: 2NASP; 73501; 82436; 87086; 88305; 97116-GO; 97161-GP; 97530-GO; J0131; J2405; J3370; J7040

== ENCOUNTER 2017-08-29 15:18 | Emergency (ER) | payer OTHER ==
[~2017-08-29] VITALS: Ht 182.9 cm; Wt 111.1 kg
[~2017-08-29 15:18] MED LIST changes: +MOBIC15 M1 PO; +MS CONTIN30 M1 PO
[2017-08-29 15:59] LABS: ABSOLUTE BASOPHIL COUNT 0 /CUMM (0.0-0.2); ABSOLUTE EOSINOPHIL COUNT 0.2 /CUMM (0.0-0.7); ABSOLUTE GRANULOCYTE CT 2.9 /CUMM (1.4-6.5); ABSOLUTE LYMPH COUNT 2.5 /CUMM (1.2-3.4); ABSOLUTE MONOCYTE COUNT 0.5 /CUMM (0.10-0.60); BASOPHIL % 0.5 % (0.0-2.0); EOSINOPHIL % 3.9 % (0-5); GRANULOCYTE % 47.6 % (42.2-75.2); HEMATOCRIT 45.7 % (42-52); MEAN CORPUSCULAR HGB 33.6 PG (27.0-31.0); MEAN CORPUSCULAR HGB CONC 34.6 G/DL (33.0-37.0); MEAN CORPUSCULAR VOLUME 97.1 FL (80.0-94.0); MEAN PLATELET VOLUME 7.5 FL (7.4-10.4); PLATELET COUNT 194 /CUMM (130-400); RBC DISTRIBUTION WIDTH 13.6 % (11.5-14.5); WHITE BLOOD CELL COUNT 6.1 /CUMM (4.8-10.8)
--- NOTE | 2017-08-29 16:45 | ED GENERAL ADULT ---
History of Present Illness General Chief Complaint: General Adult Stated Complaint: COUGHING UP BLOOD Source: patient, family Exam Limitations: no limitations Vital Signs & Intake/Output Vital Signs & Intake/Output Vital Signs Date Time Temp Pulse Resp B/P B/P Pulse O2 O2 Flow FiO2 Mean Ox Delivery Rate 08/29 1909 98.3 98 16 138/68 96 Room Air 08/29 1525 98.0 102 18 160/88 98 Room Air Allergies Coded Allergies: Penicillins (Severe, ANAPHYLAXIS 04/23/16) Reconcile Medications Albuterol Sulfate (Proair Hfa) 90 MCG HFA.AER.AD 2 PUF INH Q4-6 PRN PRN cough/ sob Triage Note: PT TO TRIAGE WITH MULTIPLE COMPLAINTS. COMPLAINS OF CHRONIC HIP/ELBOW/KNEE AND BACK PAIN AND HAS NOT BEEN ABLE TO GET INTO SEE PMD TO GET PAIN MEDS. STATES THAT HE WENT TO WALK IN 2 WEEKS AGO THEY GAVE HIM ANTABUSE TO HELP HIM TO STOP DRINKING, STATES THAT HE WAS SOBER FOR 3 YEARS AND STARTED TO DRINK AGAIN IN MAY, LAST DRINK WAS 30 MINUTES AGO, PT STATES THAT HE DOES NOT WANT DETOX HERE AND JUST NEEDS MEDS TO HELP HIM STOP. ALSO STATES THAT HE WAS GIVEN 12 DIAZEPAM TO HELP HIM WITH HIS PAIN WHICH HE HAS NO MORE. ALSO STATES THAT FOR THE PAST 3 WEEKS HE HAS BEEN FEELING SOB AND HAS BEEN coughingING UP BLOOD FOR THE PAST 2 WEEKS, STATES THAT TRACE AMOUNTS. DENIES CP Triage Nurses Notes Reviewed? yes Onset: Gradual Duration: week(s): (3), changing over time, continues in ED, getting worse Timing: recent history Injury Environment: home Severity: mild, moderate No Modifying Factors: none Associated Symptoms: cough HPI: 37 year old male past medical history of alcohol abuse and hypertension presents for evaluation of multiple complaints. He states that he has been feeling short of breath for the past month. He says that symptoms started after his basement flooded and he thinks that mold might be growing in his basement. He states that he feels short of breath that is worse with exertion. He also reports associated cough. He states over the past 2 weeks she'sbeen coughing up blood- streaked sputum. He denies any chest pain or lower extremity edema recent surgery recent trauma or history of blood clots. No fevers. He is not taking any medicine for this. He is not a smoker. He also reports that for the past 3 months he started drinking alcohol again. Patient states that he has been sober for 3 years until May when he started drinking. She states that he drinks at least 12 beers per day. His last drink was 30 minutes prior to presentation. He does have a previous history of alcohol withdrawal but denies history of seizures. He is requesting a prescription for benzodiazepines help him withdraw. He does not wish to stay here for detox. He denies any suicidal or homicidal ideation. He was brought here by his who is at the bedside. Past History Travel History Traveled to [place] past 21 day No Medical History Any Pertinent Medical History? see below for history Neurological: NONE EENT: NONE Cardiovascular: hypertension, syncope Respiratory: NONE Gastrointestinal: GERD Hepatic: NONE Renal: NONE Musculoskeletal: VASCULAR NECROSIS BI. 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 Psychosocial History Who do you live with Significant Other What is your primary language Venezuelan Tobacco Use: Current Daily Use Daily Tobacco Use Amount/Type: => 5 Cigarettes daily ETOH Use: alcoholic Illicit Drug Use: denies illicit drug use Family History Hx Contributory? No Review of Systems Review of Systems Constitutional: Reports: no symptoms. EENTM: Reports: no symptoms. Respiratory: Reports: see HPI, cough, hemoptysis, short of breath. Cardiovascular: Reports: no symptoms. GI: Reports: no symptoms. Genitourinary: Reports: no symptoms. Musculoskeletal: Reports: no symptoms. Skin: Reports: no symptoms. Neurological/Psychological: Reports: no symptoms. Hematologic/Endocrine: Reports: no symptoms. Immunologic/Allergic: Reports: no symptoms. All Other Systems: Reviewed and Negative Physical Exam Physical Exam General Appearance: well developed/nourished, no apparent distress, alert, awake , intoxicated, obese Head: atraumatic, normal appearance Eyes: Bilateral: normal appearance, PERRL, EOMI. Ears, Nose, Throat: normal pharynx, normal ENT inspection, hearing grossly normal Neck: normal inspection, supple, full range of motion Respiratory: chest non-tender, no respiratory distress, wheezing (mild/faint) Cardiovascular: regular rate/rhythm (rate 104), normal peripheral pulses Peripheral Pulses: 2+ radial (R), 2+ radial (L) Gastrointestinal: normal bowel sounds, soft, non-tender, no organomegaly Back: normal inspection, normal range of motion Extremities: normal inspection, normal range of motion, no edema Neurologic/Psych: no motor/sensory deficits, awake, alert, oriented x 3, normal gait, normal mood/affect Skin: intact, normal color, warm/dry Core Measures ACS in differential dx? No CVA/TIA Diagnosis: No Sepsis Present: No Sepsis Focused Exam Completed? No Progress Differential Diagnoses I considered the following diagnoses in my evaluation of the patient: [Pneumonia , bronchitis, asthma, COPD, pulmonary embolism, alcohol abuse, alcohol withdrawal, alcohol intoxication, electrolyte abnormality] Plan of Care: Orders Procedure Date/time Status Add-on Test (ER Only) 08/29 1702 Active EKG 08/29 170 Active Add-on Test (ER Only) 08/29 1621 Active URINE DRUG SCREEN FOR ER ONLY 08/29 1530 Complete TROPONIN LEVEL 08/29 1530 Complete MAGNESIUM 08/29 1530 Complete LIPASE 08/29 1530 Complete ETHANOL 08/29 1530 Complete D-DIMER 08/29 1530 Complete COMPREHENSIVE METABOLIC PANEL 08/29 1530 Complete CBC WITHOUT DIFFERENTIAL 08/29 1530 Complete Laboratory Tests 08/29/17 1729: Urine Opiates Screen < 100.00, Methadone Screen < 40, Barbiturate Screen < 60, Ur Phencyclidine Scrn < 6.00, Amphetamines Screen < 100, U Benzodiazepines Scrn 434 H, Urine Cocaine Screen < 50, Urine Cannabis Screen < 5.00 08/29/17 1530: Anion Gap 20 H, Estimated GFR > 60, BUN/Creatinine Ratio 12.2, Glucose 144 H, Calcium 9.0, Magnesium 2.2, Total Bilirubin 0.4, AST 115 H, ALT 121 H, Alkaline Phosphatase 128 H, Troponin I < 0.01, Total Protein 7.6, Albumin 4.9, Globulin 2.7, Albumin/Globulin Ratio 1.8, Lipase 167, D-Dimer High Sensitivty < 200, CBC w Diff NO MAN DIFF REQ, RBC 4.70, MCV 97.1 H, MCH 33.6 H, RDW 13.6, MPV 7.5, Gran % 47.6, Lymphocytes % 40.5, Monocytes % 7.5, Eosinophils % 3.9, Basophils % 0.5, Absolute Granulocytes 2.9, Absolute Lymphocytes 2.5, Absolute Monocytes 0.5, Absolute Eosinophils 0.2, Absolute Basophils 0, PUBS MCHC 34.6, Serum Alcohol 248.0 Patient seen and evaluated. He is currently intoxicated with a level of 248. He does not wish to stay here for detox. Advised patient about the potential risks of alcohol withdrawal that includes seizures and possibly . Advised him he should stay for further evaluation and repeat CIWA exams. Patient does not wish to stay he's requesting benzodiazepines for outpatient treatment. Advised him that we cannot do this. He has an appointment with his primary care doctor tomorrow. He states that he will see his primary care doctor in attempt to get benzodiazepines for outpatient detox if he is unable to do this she'll return to the emergency department for admission for detox. Patient has a steady gait no slurred speech. He is his is here to give him a ride home. blood work is within normal limits including a negative d-dimer as chest x-ray is clear. EKG is stable negative troponin. Patient will be given a prescription for pro-air inhaler as well as some wheezing on exam. Patient was given a list of alcohol detox facilities. Again encourage patient to stay for alcohol detox. He is alert and oriented 3 he understands the risks. Return to the emergency department at any time for alcohol detox. Patient is nontoxic- appearing and agrees with the plan. Diagnostic Imaging: Viewed by Me: Radiology Read. Discussed w/RAD: Radiology Read. CXR Impression: PATIENT: MABEL AQUINO PRESENT AGE: 37 PATIENT ACCOUNT NO: [id number] : 81 LOCATION: [facility] ORDERING PHYSICIAN: Niko AMADOR SERVICE DATE: 08/29/17 EXAM TYPE: RAD - XRY-CHEST XRAY, TWO VIEWS EXAMINATION: XR CHEST CLINICAL INFORMATION: Cough, shortness of breath. COMPARISON: None TECHNIQUE: 2 views of the chest were obtained. FINDINGS : No significant abnormality is noted involving the heart, lungs, mediastinum, bony thorax or soft tissues. IMPRESSION: Unremarkable examination. DICTATED BY: Melecio Joseph MD DATE/TIME DICTATED:08/29/171846 BUOY TENDER:TERRA DATE/TIME TRANSCRIBED:08/29/171846 CONFIDENTIAL, DO NOT COPY WITHOUT APPROPRIATE AUTHORIZATION. Initial ED EKG: normal sinus rhythm (rate 100), nonspecific interventricular conduction delay Departure Departure Disposition: HOME OR SELF CARE Condition: Stable Clinical Impression Primary Impression: Shortness of breath Secondary Impressions: Alcohol intoxication Qualifiers: Complication of substance-induced condition: uncomplicated Qualified Code: F10.920 - Alcohol use, unspecified with intoxication, uncomplicated Referrals: Sandra Marr APRN (PCP/Family) Additional Instructions: Rest and drink plenty of fluids. Use pro-air inhaler 2 puffs every 4-6 hours as needed for cough or shortness of breath. He is recommended he stay in the emergency department for evaluation of alcohol detox. Return to the emergency department at any time for evaluation of alcohol withdrawal. Additionally see attached list of outpatient detox centers. Follow-up with primary care doctor tomorrow as scheduled. Monitor symptoms return with any concerns. Departure Forms: Customer Survey General Discharge Information Prescriptions: Current Visit Scripts Albuterol Sulfate (Proair Hfa) 2 PUF INH Q4-6 PRN PRN cough/sob #1 INHAL Critical Care Note Critical Care Note Critical Care Time: non-applicable
--- NOTE | 2017-08-29 18:51 | RADIOLOGY REPORT ---
EXAMINATION: XR CHEST CLINICAL INFORMATION: Cough, shortness of breath. COMPARISON: None TECHNIQUE: 2 views of the chest were obtained. FINDINGS: No significant abnormality is noted involving the heart, lungs, mediastinum, bony thorax or soft tissues. IMPRESSION: Unremarkable examination.
[2017-08-29] MEDS ORDERED: PROAIR HFA8.5 GM INH (19:02)
[2017-08-29 19:09] VITALS: BP 138/68
== END 2017-08-29 19:12 ==
LOC: ERH 15:18
PROVIDERS: Emergency Medicine
DX: R06.02 Shortness of breath (principal); F10.129 Alcohol abuse with intoxication, unspecified
CPT/HCPCS: 71046; 80307; 93005; 93010; G0480

== ENCOUNTER 2017-09-01 08:45 | Inpatient (IN) | payer OTHER ==
[~2017-09-01] VITALS: Ht 182.9 cm; Wt 113.4 kg
[2017-09-01] VITALS (7 sets, daily range): BP systolic 133–1144; BP diastolic 75–98
[~2017-09-01 08:45] MED LIST changes: +PROAIR HFA8.5 GM INH
--- NOTE | 2017-09-01 09:54 | ED PSYCHIATRIC COMPLAINT ---
History of Present Illness General Chief Complaint: ETOH/Drug Related Complaint Stated Complaint: ALCOHOL DETOX Source: patient Exam Limitations: no limitations Vital Signs & Intake/Output Vital Signs & Intake/Output Vital Signs Date Time Temp Pulse Resp B/P B/P Pulse O2 O2 Flow FiO2 Mean Ox Delivery Rate 09/03 1550 98.8 77 20 98/58 96 Room Air 09/03 0631 97.6 70 18 132/90 95 Room Air 09/02 2147 97.9 70 19 122/96 96 Room Air 09/02 2116 70 122/96 09/02 1800 140/78 ED Intake and Output 09/03 0000 09/02 1200 Intake Total 1920 920 Output Total 1150 Balance 770 920 Intake, IV 400 800 Intake, Oral 1520 120 Number 0 Bowel Movements Output, Urine 1150 Allergies Coded Allergies: Penicillins (Severe, ANAPHYLAXIS 04/23/16) Triage Note: PT TO ED FOR ETOH DETOX, 1 PINT PER DAY SINCE MAY, PRIOR TO THAT WAS CLEAN X 4 YEARS. DENIES OTHER DRUGS, +SMOKER. Triage Nurses Notes Reviewed? yes Onset: Abrupt Duration: day(s): (1), constant Timing: recent history HPI: 37-year-old male comes into emergency room with complaints of alcohol withdrawal. Patient reports that he had been sober for 4 years. He recently started drinking heavily back in May of this year. He had drink heavily for years before that a gallon of alcohol. He started with shakes last night. He denies any pain. Denies any suicidal or homicidal ideation. Denies any seizure withdrawal but has a history of severe shakes when he stops drinking. No prior history of hallucinations when he stops drinking. Patient reports the last time he had stopped drinking 4 years ago he was in a coma for 17 days and on a ventilator. (Giovani Slade) Past History Travel History Traveled to [place] past 21 day No Medical History Any Pertinent Medical History? see below for history Neurological: NONE EENT: NONE Cardiovascular: hypertension, syncope Respiratory: NONE Gastrointestinal: GERD Hepatic: NONE Renal: NONE Musculoskeletal: VASCULAR NECROSIS BI. 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 Psychosocial History Who do you live with Significant Other What is your primary language Cuban Tobacco Use: Current Daily Use Daily Tobacco Use Amount/Type: => 5 Cigarettes daily ETOH Use: alcoholic Illicit Drug Use: denies illicit drug use Family History Hx Contributory? No (Giovani Slade) Review of Systems Review of Systems Constitutional: Reports: no symptoms. EENTM: Reports: no symptoms. Respiratory: Reports: no symptoms. Cardiovascular: Reports: no symptoms. GI: Reports: no symptoms. Genitourinary: Reports: no symptoms. Musculoskeletal: Reports: no symptoms. Skin: Reports: no symptoms. Neurological/Psychological: Reports: see HPI. Hematologic/Endocrine: Reports: no symptoms. Immunologic/Allergic: Reports: no symptoms. All Other Systems: Reviewed and Negative (Giovani Slade) Physical Exam Physical Exam General Appearance: well developed/nourished, moderate distress Head: atraumatic Eyes: Bilateral: normal appearance, EOMI. Ears, Nose, Throat: normal pharynx, normal ENT inspection, hearing grossly normal Neck: normal inspection, supple Respiratory: normal breath sounds, no respiratory distress Cardiovascular: regular rate/rhythm, tachycardia Extremities: normal range of motion Neurological/Psychiatric: awake, alert Appearance/Memory/Insight: appropriate appearance Behavoir/Eye Contact/Speech: cooperative Skin: intact, normal color, warm/dry SAD PERSONS Done? patient not suicidal (Giovani Slade) Progress Differential Diagnosis: dementia, drug intoxication, drug overdose, drug withdrawal, electrolyte abnormality, encephalitis, hypoglycemia, hypothyroidism, IC hem/mass/tumor, meningitis, dts Plan of Care: Current Medications Sig/Femi Start time Last Medication Dose Stop Time Status Admin Lorazepam 1 MG Q8 09/05 0600 AC (Ativan) Lorazepam 1 MG Q6 09/04 0600 AC (Ativan) 09/05 0000 Lorazepam 1.5 MG Q6 09/03 1200 AC 09/03 (Ativan) 09/04 0300 1109 Enoxaparin Sodium 40 MG 1700 09/02 1700 AC 09/02 (Lovenox) 1809 Nicotine 14 MG DAILY 09/02 1655 AC 09/03 (Nicotine Cq) 1109 Lorazepam 0 Q1P PRN 09/02 1615 AC 09/02 (Ativan) 2356 Omeprazole 40 MG DAILY AC 09/01 1751 AC 09/03 (Prilosec) 0549 Ondansetron HCl 4 MG Q6P PRN 09/01 1630 AC (Zofran) Multivitamins 1 TAB DAILY 09/01 1617 AC 09/03 (Theragran Vitamins) 1110 Acetaminophen 650 MG Q6P PRN 09/01 1615 AC (Tylenol) Ibuprofen 600 MG Q6P PRN 09/01 1615 AC (Motrin) Oxycodone/ 1 TAB Q6P PRN 09/01 1615 AC 09/03 Acetaminophen 0536 (Percocet) Laboratory Tests 09/03/17 0739: Anion Gap 14, Estimated GFR > 60, BUN/Creatinine Ratio 16.3, Magnesium 2.2, CBC w Diff NO MAN DIFF REQ, RBC 4.74, MCV 98.0 H, MCH 33.9 H, RDW 13.5, MPV 7.4, Gran % 62.9, Lymphocytes % 24.8, Monocytes % 8.7, Eosinophils % 3.5, Basophils % 0.1, Absolute Granulocytes 3.1, Absolute Lymphocytes 1.2, Absolute Monocytes 0.4 , Absolute Eosinophils 0.2, Absolute Basophils 0, PUBS MCHC 34.6 PATIETN SEEN AND EXAMINED WITH PA. LAST MAJOR DETOX 4 YEARS AGO, WAS IN ICU INTUBATED X 19 DAY. PATIETN VERY TREMULOUS AND SHAKY. IV/PO ATIVAN GIVEN. 2:50 pm patient approved for admission. (Windy TAYLOR,Megan) Initial ED EKG: normal sinus rhythm, rate (92), borderline t wave abnormalities Prior EKG: unchanged (Giovani Slade) Departure Departure Disposition: STILL A PATIENT Condition: Stable Clinical Impression Primary Impression: Alcohol withdrawal Referrals: Sandra Marr APRN (PCP/Family) Departure Forms: Customer Survey General Discharge Information Prescriptions: Current Visit Scripts No Known Home Medications Admission Note Spoke With: Chen Gandhi MD Documentation of Exam: Documentation of any treatments & extenuating circumstances including Concerns Regarding Discharge (functional status, medication knowledge or non-compliance, living conditions, etc.) that warrant an admission rather than observation: Patient will require IV Ativan. inPatient medical detox. History of previous intubation and ICU management after alcohol withdrawal. Medically not safe for discharge. (Giovani Slade) Departure Time of Disposition: 1443 PA/BOBBIN HAULER Co-Sign Statement Statement: ED Attending supervision documentation- [X] I saw and evaluated the patient. I have also reviewed all the pertinent lab results and diagnostic results. I agree with the findings and the plan of care as documented in the PA's/BOBBIN HAULER's documentation. [X] I have reviewed the ED Record and agree with the PA's/BOBBIN HAULER's documentation. [] Additions or exceptions (if any) to the PAs/BOBBIN HAULER's note and plan are summarized below: [] (Windy TAYLOR,Megan)
[2017-09-01 09:55] LABS: ABSOLUTE BASOPHIL COUNT 0 /CUMM (0.0-0.2); ABSOLUTE EOSINOPHIL COUNT 0.1 /CUMM (0.0-0.7); ABSOLUTE GRANULOCYTE CT 3.6 /CUMM (1.4-6.5); ABSOLUTE LYMPH COUNT 1.6 /CUMM (1.2-3.4); ABSOLUTE MONOCYTE COUNT 0.4 /CUMM (0.10-0.60); BASOPHIL % 0 % (0.0-2.0); EOSINOPHIL % 2.3 % (0-5); HEMATOCRIT 47.5 % (42-52); MEAN CORPUSCULAR HGB 33.8 PG (27.0-31.0); MEAN CORPUSCULAR HGB CONC 34.8 G/DL (33.0-37.0); MEAN CORPUSCULAR VOLUME 97.3 FL (80.0-94.0); MEAN PLATELET VOLUME 7.2 FL (7.4-10.4); PLATELET COUNT 182 /CUMM (130-400); RBC DISTRIBUTION WIDTH 13.4 % (11.5-14.5); RED BLOOD CELL CT 4.88 /CUMM (4.70-6.10); WHITE BLOOD CELL COUNT 5.8 /CUMM (4.8-10.8)
[2017-09-01 10:00] LABS: PT 10.1 SEC (9.4-12.5); PTT 30 SEC (25-37)
--- NOTE | 2017-09-01 14:41 | History & Physical ---
Buzz TAYLOR,Melvi 09/01/17 1441: General Information and HPI MD Statement: I have seen and personally examined MABEL AQUINO and documented this H&P. The patient is a 37 year old M who presented with a patient stated chief complaint of [etoh withdrawl]. Source of Information: patient, old records Exam Limitations: no limitations History of Present Illness: This a 37 yo male with PMH htn, syncope, GERD, bilat hip replacements in 2017, previous complicated EtOH detox who comes in requesting EtOH detox. About 4 yrs ago he had an admission to [facility] for etoh detox and he states that he was admitted to ICU and intubated for 17 days. He had been sober for 4 hrs and then started drinking in . Last drink was yesterday night at 10:30pm and it was a shot of whiskey. He usually has "little over a pint" of whiskey per day habit. He tried to quit about a month ago and got diazepam from a walk in clinic. He states he was successful with tapering until he ran out of Diazepam. Every time he stops drinking he gets "the shakes." He does smoke 1PPD but does not engage in any other drug abuse. Denies any ellison/n/v/d/cp/sob, but does endorse shakes and mild muskuloskeletal discomfort. Allergies/Medications Allergies: Coded Allergies: Penicillins (Severe, ANAPHYLAXIS 04/23/16) Past History Travel History Traveled to [place] past 21 day No Medical History Neurological: NONE EENT: NONE Cardiovascular: hypertension, syncope Respiratory: NONE Gastrointestinal: GERD Hepatic: NONE Renal: NONE Musculoskeletal: VASCULAR NECROSIS BI. 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 Past Family/Social History Psychosocial History ETOH Use: alcoholic Illicit Drug Use: denies illicit drug use Review of Systems Review of Systems Constitutional: Reports: see HPI. Exam & Diagnostic Data Last 24 Hrs of Vital Signs/I&O Vital Signs Date Time Temp Pulse Resp B/P B/P Pulse O2 O2 Flow FiO2 Mean Ox Delivery Rate 09/01 1654 97.6 98 20 133/85 93 Room Air Room Air 09/01 1405 97.8 87 20 142/79 09/01 1405 97.8 87 20 142/79 95 Room Air 09/01 1127 97.9 109 20 134/75 09/01 1127 97.9 109 20 134/75 93 Room Air Room Air 09/01 1056 Room Air Room Air 09/01 6656 692 7645/79 09/01 1000 101 15 144/79 99 Room Air Room Air 09/01 0848 97.4 110 18 155/87 97 Room Air Room Air Intake & Output 09/01 1600 09/01 0800 09/01 0000 Intake Total 1000 Output Total Balance 1000 Intake, IV 1000 Intake, Oral 0 Patient 113.398 kg Weight Weight Reported by Patient Measurement Method Physical Exam General Appearance Alert, Oriented X3, Cooperative, Mild Distress Skin No Significant Lesion HEENT Atraumatic, PERRLA, EOMI, Mucous Membr. moist/pink Neck Supple Cardiovascular tachycardic. regular s1/s2 Lungs Clear to Auscultation, Normal Air Movement Abdomen Soft, No Tenderness Extremities No Cyanosis, No Edema, Normal Pulses Last 24 Hrs of Labs/Tello: Laboratory Tests 09/01/17 0935: Anion Gap 17 H, Estimated GFR > 60, BUN/Creatinine Ratio 14.3, Glucose 112 H, Calcium 9.5, Magnesium 1.8, Total Bilirubin 0.5, AST 131 H, ALT 173 H, Alkaline Phosphatase 118, Total Protein 7.9, Albumin 5.2 H, Globulin 2.7, Albumin/Globulin Ratio 1.9, Lipase 74, PT 10.1, INR 0.96, APTT 30, CBC w Diff NO MAN DIFF REQ, RBC 4.88, MCV 97.3 H, MCH 33.8 H, RDW 13.4, MPV 7.2 L, Gran % 62.0, Lymphocytes % 28.1, Monocytes % 7.6, Eosinophils % 2.3, Basophils % 0, Absolute Granulocytes 3.6, Absolute Lymphocytes 1.6, Absolute Monocytes 0.4, Absolute Eosinophils 0.1, Absolute Basophils 0, PUBS MCHC 34.8, Serum Alcohol 32.0 Assessment/Plan Assessment: This a 37 yo male with PMH htn, syncope, GERD, bilat hip replacements in 2017, previous complicated EtOH detox who comes in requesting EtOH detox. PLAN Etoh detox: Last CIWA , , . Got 6mg ativan so far. Note than Aug 29 tox screen + for benzos, likely due to walk in clinic prescription. 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 * CIWA protocol * 2mg q6 standing * q1 PRN * Thiamine * Multivite * Folate * Heart healthy diet * EKG * PPI * Social work consult placed * Check mag * Check phos Transamanitis: AST 131, ALT 173. Not classic 2:1 ratio, but likely secondary to EtOH. * monitor in AM * If worsens consider RUQ US Hypernatremia: Na 147. Likely to decreased PO intake * IVF * Monitor Elevated AG: Likely 2/2 etoh. * Monitor for resolution HTN: Has BP 155/87 then down to 133 systolic. Pt states he has baseline HTN but does not take any meds at home. As his BP and tachycardia seem to be improving will hold off on any pharmacologic mgmt other than managing withdrawl. * EKG * Likely withdrawl significant component of htn. Will manage via CIWA Smoking: Has ppd habit. Holding off nicotine patch as it may worsen tachycardia. Re-eval in AM. [employer] ppx Heart healthy diet. As Ranked By This Provider Problem List: 1. Alcohol withdrawal Core Measures/Misc (05/09) Acute Coronary Syndrome ACS Diagnosis: No Congestive Heart Failure Congestive Heart Failure Diagnosis No Cerebrovascular Accident CVA/TIA Diagnosis: No VTE (View Protocol) VTE Risk Factors Age>40 No Mechanical VTE Prophylaxis d/t N/A MechProphylax Ordered No VTE Pharm Prophylaxis d/t NA PharmProphylax ordered Sepsis (View protocol) Sepsis Present: No Chen Gandhi MD 09/02/17 0756: Past Family/Social History Psychosocial History Other Social History: Family history of questionable HTN, not sure which family members Attending MD Review Statement Attending Statement Attending MD Statement: examined this patient, discuss w/resident/PA/NURSE COLLEGE, agreed w/resident/PA/NURSE COLLEGE, reviewed EMR data (avail), reviewed images Attending Assessment/Plan: See medical brief addendum note dated 09/01/17
--- NOTE | 2017-09-01 15:52 | Admission Certification ---
Admission Certification Certification Statement - As attending physician, I certify that at the time of - admission, based on clinical presentation, severity of - symptoms, need for further diagnostic testing and - therapeutic interventions, and risk of adverse outcomes - without in-hospital treatment, in my clinical assessment, - this patient requires an acute hospital stay for a minimum - of two nights or longer. I have also considered psychsocial - factors such as support system, advanced age, financial - issues, cognitive issues, and failed out-patient treatments, - past re-admission history, safety of patient, and lack of - compliance as applicable. Specific rationale supporting this admission is: Acute alcohol withdrawal with a history of delirium tremens.
--- NOTE | 2017-09-01 16:53 | PN- Att Addend ---
Attending Addendum Attending Brief Note 37-year-old male past medical history of alcohol abuse, hypertension on no meds and history of avascular necrosis status post surgery. Patient says he was sober for a long time but since May has started drinking again. He made an ED visit on August 29 when he had gotten some outpatient treatment with Antabuse and diazepam to stop drinking. He comes in today requesting detox. He says that four years ago he was admitted to another hospital and landed up in the ICU and had an extended hospital stay for DVTs. At this time will bring him into [facility]. Will put him on Ativan around-the- clock and Ativan per CIWA. We'll check an EKG, he is tachycardic and I think it 's all the withdrawal given the sinus tachycardia. Give thiamine, folate, multivitamins. Watch BP closely and start low dose beta lenny if htn and tachycardia are an issue. DVT prophylaxis, sw consult and f/u
[2017-09-02 07:18] VITALS: BP 136/84
--- NOTE | 2017-09-02 08:04 | PN- Housestaff ---
See Addendum Subjective Follow-up For: Alcohol withdrawal Subjective: The patient was seen and examined. Resting comfortably. He denies any headache , dizziness, lightheadedness, nausea, vomiting, chest pain, shortness of breath, abdominal pain. Vital signs are stable. No overnight events reported. CIWA score running low (0-1) Review of Systems Constitutional: Reports: no symptoms. Objective Last 24 Hrs of Vital Signs/I&O Vital Signs Date Time Temp Pulse Resp B/P B/P Pulse O2 O2 Flow FiO2 Mean Ox Delivery Rate 09/02 0718 97.8 81 20 136/84 93 09/01 2212 98.2 86 20 148/98 95 Room Air 09/01 204 96.8 100 16 135/79 09/01 2048 96.8 100 16 135/79 98 Room Air 09/01 1858 88 20 138/80 09/01 1858 88 18 139/80 94 09/01 1654 97.6 98 20 133/85 09/01 1654 97.6 98 20 133/85 93 Room Air Room Air 09/01 1405 97.8 87 20 142/79 09/01 1405 97.8 87 20 142/79 95 Room Air 09/01 1127 97.9 109 20 134/75 09/01 1127 97.9 109 20 134/75 93 Room Air Room Air 09/01 1056 Room Air Room Air 09/01 9957 357 0165/79 09/01 1000 101 15 144/79 99 Room Air Room Air Intake & Output 09/02 1600 09/02 0800 09/02 0000 Intake Total 920 Output Total Balance 920 Intake, IV 800 Intake, Oral 120 Patient 250 lb Weight Weight Reported by Patient Measurement Method Physical Exam General Appearance: Alert, Oriented X3, Cooperative, No Acute Distress Skin: No Rashes, No Breakdown, No Significant Lesion HEENT: Atraumatic, PERRLA, EOMI, Mucous Membr. moist/pink Neck: Supple, No JVD, No thryomegaly, +2 Carotid Pulse wo Bruit, No LAD Cardiovascular: Regular Rate, Normal S1, Normal S2, No Murmurs, Gallops, Rubs Lungs: Clear to Auscultation, Normal Air Movement Abdomen: Normal Bowel Sounds, Soft, No Tenderness, No Hepatospenomegaly, No Masses Neurological: Normal Speech, Normal Tone, Sensation Intact, Cranial Nerves 3-12 NL Extremities: No Clubbing, No Cyanosis, No Edema, Normal Pulses, No Tenderness/ Swelling Vascular: Normal Pulses, Pulses Symmetrical Current Medications: Current Medications Sig/Femi Start time Last Medication Dose Route Stop Time Status Admin Acetaminophen 650 MG Q6P PRN 09/01 161 AC PO Enoxaparin Sodium 40 MG 1700 09/02 1700 AC SC Enoxaparin Sodium 0 .STK-MED ONE 09/01 1651 DC SC Enoxaparin Sodium 40 MG DAILY 09/01 1615 DC 09/01 SC 1657 Folic Acid 0 .STK-MED ONE 09/01 1651 DC PO Folic Acid 1 MG DAILY 09/01 1617 AC 09/01 PO 09/03 1001 1657 Ibuprofen 600 MG Q6P PRN 09/01 1615 AC PO Influenza Virus 0.5 ML ONCE ONE 09/01 2200 DC Vaccine IM 09/01 2201 Lorazepam 1.5 MG Q6 09/02 0600 AC 09/02 PO 09/02 1801 0503 Lorazepam 2 MG Q6 09/01 1800 DC 09/01 PO 09/02 0001 2326 Lorazepam 0 .STK-MED ONE 09/01 1650 DC PO Lorazepam 1 MG Q1P PRN 09/01 1630 AC 09/01 IV 2220 Lorazepam 2 MG ONE ONE 09/01 1200 DC 09/01 IV 09/01 1201 1152 Lorazepam 0 .STK-MED ONE 09/01 1152 DC .ROUTE Lorazepam 0 .STK-MED ONE 09/01 1004 DC .ROUTE Lorazepam 1 MG ONCE ONE 09/01 1000 CAN IV 09/01 1001 Lorazepam 2 MG ONE ONE 09/01 1000 DC IV 09/01 1001 Lorazepam 2 MG ONE ONE 09/01 1000 DC 09/01 IV 09/01 1001 1004 Lorazepam 2 MG ONCE ONE 09/01 0945 DC 09/01 PO 09/01 0946 0947 Multivitamins 0 .STK-MED ONE 09/01 1651 DC PO Multivitamins 1 TAB DAILY 09/01 1617 AC 09/01 PO 1657 Omeprazole 0 .STK-MED ONE 09/01 1911 DC PO Omeprazole 40 MG DAILY AC 09/01 1751 AC 09/02 PO 0502 Ondansetron HCl 4 MG Q6P PRN 09/01 1630 AC IV Oxycodone/ 1 TAB Q6P PRN 09/01 1615 AC 09/01 Acetaminophen PO 2201 Sodium Chloride 1,000 ML Q10H 09/01 1630 DC 09/01 IV 09/02 0229 1659 Sodium Chloride 1,000 ML BOLUS ONE 09/01 1000 DC 09/01 IV 09/01 1059 1004 Thiamine HCl 0 .STK-MED ONE 09/01 1651 DC PO Thiamine HCl 100 MG DAILY 09/01 1617 AC 09/01 PO 09/03 1001 1657 Last 24 Hrs of Lab/Tello Results Last 24 Hrs of Labs/Mics: Laboratory Tests 09/02/17 0646: Anion Gap 13, Estimated GFR > 60, BUN/Creatinine Ratio 16.7, Phosphorus 3.2, Magnesium 1.5 L, Total Bilirubin 0.6, Direct Bilirubin 0.3, AST 97 H, ALT 134 H, Alkaline Phosphatase 87, Total Protein 5.6 L, Albumin 3.4 L, CBC w Diff NO MAN DIFF REQ, RBC 4.65 L, MCV 98.2 H, MCH 33.9 H, RDW 13.5, MPV 7.6, Gran % 63.0, Lymphocytes % 24.6, Monocytes % 9.1, Eosinophils % 3.0, Basophils % 0.3, Absolute Granulocytes 3.5, Absolute Lymphocytes 1.4, Absolute Monocytes 0.5, Absolute Eosinophils 0.2, Absolute Basophils 0, PUBS MCHC 34.5 09/01/17 2220: Urine Opiates Screen < 100.00, Methadone Screen < 40, Barbiturate Screen < 60, Ur Phencyclidine Scrn < 6.00, Amphetamines Screen < 100, U Benzodiazepines Scrn > 800 H, Urine Cocaine Screen < 50, Urine Cannabis Screen < 5.00, Urine Color YEL, Urine Clarity CLEAR, Urine pH 7.0, Ur Specific [place] 1.020, Urine Protein TRACE H, Urine Ketones NEG, Urine Nitrite NEG, Urine Bilirubin NEG, Urine Urobilinogen 1.0, Ur Leukocyte Esterase NEG, Ur Microscopic SEDIMENT EXAMINED, Urine RBC RARE, Urine WBC RARE, Ur Epithelial Cells RARE, Urine Bacteria FEW H, Urine Mucus FEW, Urine Hemoglobin NEG, Urine Glucose NEG 09/01/17 1000: Methadone Screen Cancelled, Barbiturate Screen Cancelled, Ur Phencyclidine Scrn Cancelled, Amphetamines Screen Cancelled, U Benzodiazepines Scrn Cancelled, Urine Cocaine Screen Cancelled, Urine Cannabis Screen Cancelled 09/01/17 0935: Anion Gap 17 H, Estimated GFR > 60, BUN/Creatinine Ratio 14.3, Glucose 112 H, Calcium 9.5, Phosphorus 3.0, Magnesium 1.8, Total Bilirubin 0.5, AST 131 H, ALT 173 H, Alkaline Phosphatase 118, Total Protein 7.9, Albumin 5.2 H, Globulin 2.7, Albumin/Globulin Ratio 1.9, Lipase 74, PT 10.1, INR 0.96, APTT 30, CBC w Diff NO MAN DIFF REQ, RBC 4.88, MCV 97.3 H, MCH 33.8 H, RDW 13.4, MPV 7.2 L, Gran % 62.0, Lymphocytes % 28.1, Monocytes % 7.6, Eosinophils % 2.3, Basophils % 0, Absolute Granulocytes 3.6, Absolute Lymphocytes 1.6, Absolute Monocytes 0.4, Absolute Eosinophils 0.1, Absolute Basophils 0, PUBS MCHC 34.8, Serum Alcohol 32.0 Assessment/Plan Assessment: This a 37-year-old gentleman with past medical history significant for hypertension, syncope, GERD, bilateral hip replacement in 2017, previous complicated EtOH detox who presented to the hospital requesting EtOH detox. Impression/plan #Etoh detox: Note than Aug 29 tox screen + for benzos, likely due to walk in clinic prescription. However, note that when admission to tried to pull him up on CT CHECK PROCESS[employer] I couldn't pull up his profile with given information. * Continue with CIWA protocol and Ativan procedure well. * Will taper Ativan down to 1.5 mg every 6. * Continue with thiamine, multivitamin, folate, PPI * Social work consult placed * Magnesium 1.5, K: 3.3 will replete * Phosphorus within normal limits #Transamanitis: AST 131, ALT 173. Not classic 2:1 ratio, but likely secondary to EtOH. * Improved * If worsens consider RUQ US #Hypernatremia-resolved * Presented with Na level of 147. Likely to decreased PO intake * DC IVF #Elevated AG: * Likely 2/2 etoh. * Resolved. #HTN: * Presented with BP 155/87 then down to 133 systolic. * On admission, the patient stated he has baseline HTN but does not take any meds at home. As his BP and tachycardia seem to be improving will hold off on any pharmacologic mgmt other than managing withdrawl. * Likely withdrawl significant component of hypertension. Will manage via CIWA #Smoking: * Nicotine patch was not given on admission given patient had tachycardia. * Consider starting nicotine patch #DVT prophylaxis: * SC Lovenox #CODE STATUS: * Full code Chemical ppx Heart healthy diet. Problem List: 1. Alcohol withdrawal Pain Ratin Pain Location: NA Pain Goal: Remain pain free Pain Plan: NA Tomorrow's Labs & Rationales: CBC LFT
[2017-09-02 08:22] LABS: ABSOLUTE BASOPHIL COUNT 0 /CUMM (0.0-0.2); ABSOLUTE EOSINOPHIL COUNT 0.2 /CUMM (0.0-0.7); ABSOLUTE GRANULOCYTE CT 3.5 /CUMM (1.4-6.5); ABSOLUTE LYMPH COUNT 1.4 /CUMM (1.2-3.4); ABSOLUTE MONOCYTE COUNT 0.5 /CUMM (0.10-0.60); BASOPHIL % 0.3 % (0.0-2.0); HEMATOCRIT 45.7 % (42-52); MEAN CORPUSCULAR HGB 33.9 PG (27.0-31.0); MEAN CORPUSCULAR HGB CONC 34.5 G/DL (33.0-37.0); MEAN CORPUSCULAR VOLUME 98.2 FL (80.0-94.0); MEAN PLATELET VOLUME 7.6 FL (7.4-10.4); PLATELET COUNT 160 /CUMM (130-400); RBC DISTRIBUTION WIDTH 13.5 % (11.5-14.5); RED BLOOD CELL CT 4.65 /CUMM (4.70-6.10); WHITE BLOOD CELL COUNT 5.5 /CUMM (4.8-10.8)
[2017-09-02 13:40] VITALS: BP 140/78
[2017-09-02 16:00] VITALS: BP 140/78
[2017-09-02 18:00] VITALS: BP 140/78
[2017-09-02 21:16] VITALS: BP 122/96
[2017-09-02 21:47] VITALS: BP 122/96
[2017-09-03 06:31] VITALS: BP 132/90
--- NOTE | 2017-09-03 07:12 | PN- Housestaff ---
See Addendum Subjective Follow-up For: Alcohol withdrawal Subjective: The patient was seen and examined. He denies any headache, dizziness, lightheadedness, tremors, nausea, vomiting, chest pain, shortness of breath, abdominal pain. Vital signs are stable. CIWA score running low (0 for the most part). No overnight events reported. Review of Systems Constitutional: Reports: no symptoms. Objective Last 24 Hrs of Vital Signs/I&O Vital Signs Date Time Temp Pulse Resp B/P B/P Pulse O2 O2 Flow FiO2 Mean Ox Delivery Rate 09/03 0631 97.6 70 18 132/90 95 Room Air 09/02 2147 97.9 70 19 122/96 96 Room Air 09/02 2116 70 122/96 09/02 1800 140/78 09/02 1600 98.4 68 18 140/78 Intake & Output 09/03 1600 09/03 0800 09/03 0000 Intake Total 480 720 Output Total 250 Balance 480 470 Intake, Oral 480 720 Number 0 Bowel Movements Output, Urine 250 Physical Exam General Appearance: Alert, Oriented X3, Cooperative, No Acute Distress Other Physical Findings: Skin: No Rashes, No Breakdown, No Significant Lesion HEENT: Atraumatic, PERRLA, EOMI, Mucous Membr. moist/pink Neck: Supple, No JVD, No thryomegaly, +2 Carotid Pulse wo Bruit, No LAD Cardiovascular: Regular Rate, Normal S1, Normal S2, No Murmurs, Gallops, Rubs Lungs: Clear to Auscultation, Normal Air Movement Abdomen: Normal Bowel Sounds, Soft, No Tenderness, No Hepatospenomegaly, No Masses Neurological: Normal Speech, Normal Tone, Sensation Intact, Cranial Nerves 3-12 NL Extremities: No Clubbing, No Cyanosis, No Edema, Normal Pulses, No Tenderness/ Swelling Vascular: Normal Pulses, Pulses Symmetrical Assessment/Plan Assessment: This a 37-year-old gentleman with past medical history significant for hypertension, syncope, GERD, bilateral hip replacement in 2017, previous complicated EtOH detox who presented to the hospital requesting EtOH detox. Impression/plan #Etoh detox: Note than Aug 29 tox screen + for benzos, likely due to walk in clinic prescription. However, note that when admission to tried to pull him up on CT [employer] they couldn't pull up his profile with given information. * Continue with CIWA protocol and Ativan procedure well. * Ativan tapered down to 1.5 mg every 6 hours. * Continue with thiamine, multivitamin, folate, PPI * Social work consult placed * Magnesium and K normalized. * Phosphorus within normal limits #Transamanitis: AST 131, ALT 173. Not classic 2:1 ratio, but likely secondary to EtOH. * Improved * If worsens consider RUQ US #Hypernatremia-resolved * Presented with Na level of 147. Likely to decreased PO intake * DCed IVF #Elevated AG: * Likely 2/2 etoh. * Resolved. #HTN: * Presented with BP 155/87 then down to 133 systolic. * On admission, the patient stated he has baseline HTN but does not take any meds at home. As his BP and tachycardia seem to be improving will hold off on any pharmacologic mgmt other than managing withdrawl. * Likely withdrawl significant component of hypertension. Will manage via CIWA #Smoking: * Nicotine patch was not given on admission given patient had tachycardia. * Consider starting nicotine patch #DVT prophylaxis: * SC Lovenox #CODE STATUS: * Full code Chemical ppx Heart healthy diet. Problem List: 1. Alcohol withdrawal Pain Ratin Pain Location: back Pain Goal: Remain pain free Pain Plan: PRN percocet Tomorrow's Labs & Rationales: None
[2017-09-03 09:11] LABS: ABSOLUTE BASOPHIL COUNT 0 /CUMM (0.0-0.2); ABSOLUTE EOSINOPHIL COUNT 0.2 /CUMM (0.0-0.7); ABSOLUTE GRANULOCYTE CT 3.1 /CUMM (1.4-6.5); ABSOLUTE LYMPH COUNT 1.2 /CUMM (1.2-3.4); ABSOLUTE MONOCYTE COUNT 0.4 /CUMM (0.10-0.60); BASOPHIL % 0.1 % (0.0-2.0); EOSINOPHIL % 3.5 % (0-5); GRANULOCYTE % 62.9 % (42.2-75.2); HEMATOCRIT 46.4 % (42-52); MEAN CORPUSCULAR HGB 33.9 PG (27.0-31.0); MEAN CORPUSCULAR HGB CONC 34.6 G/DL (33.0-37.0); MEAN PLATELET VOLUME 7.4 FL (7.4-10.4); PLATELET COUNT 163 /CUMM (130-400); RBC DISTRIBUTION WIDTH 13.5 % (11.5-14.5); RED BLOOD CELL CT 4.74 /CUMM (4.70-6.10); WHITE BLOOD CELL COUNT 4.9 /CUMM (4.8-10.8)
[2017-09-03 15:50] VITALS: BP 98/58
[2017-09-03 16:00] VITALS: BP 122/80
[2017-09-03 17:03] VITALS: BP 122/80
[2017-09-03 22:34] VITALS: BP 120/78
[2017-09-04 04:00] VITALS: BP 118/66
[2017-09-04 06:42] VITALS: BP 109/75
--- NOTE | 2017-09-04 09:47 | PN- Att Addend ---
Attending Addendum Attending Brief Note Mr. Cam was seen and evaluated by me. Chart reviewed. Reports doing better. Vital Signs Date Time Temp Pulse Resp B/P B/P Pulse O2 O2 Flow FiO2 Mean Ox Delivery Rate 09/04 0642 97.6 72 18 109/75 97 Room Air 09/04 0400 97.4 70 16 118/66 09/03 2234 98.3 74 18 120/78 95 Room Air 09/03 1703 122/80 09/03 1600 98.8 77 20 122/80 09/03 1550 98.8 77 20 98/58 96 Room Air Intake & Output 09/04 1600 09/04 0800 09/04 0000 Intake Total 240 840 Output Total Balance 240 840 Intake, Oral 240 840 VSS GEN: NAD HEENT: moist mucosa LUNGS: CTA HEART:s1s2 A/P: Etoh Withdrawal. CIWA stable on ativan taper. Dec dose 1 mg Q 12 hrs -- likely d/c in next 24-236 hrs -- f/u SW eval -- rest of the plan as per resident's note
--- NOTE | 2017-09-04 09:57 | PN- Housestaff ---
Subjective Follow-up For: etoh detox Subjective: Patient left AGAINST MEDICAL ADVICE before complete assessment in the morning. We explained for the patient risk and benefits and that he will need to complete his alcohol detox. Morning attending notified. Review of Systems Constitutional: Reports: see HPI. Objective Last 24 Hrs of Vital Signs/I&O Vital Signs Date Time Temp Pulse Resp B/P B/P Pulse O2 O2 Flow FiO2 Mean Ox Delivery Rate 09/04 0642 97.6 72 18 109/75 97 Room Air 09/04 0400 97.4 70 16 118/66 Intake & Output 09/04 1600 09/04 0800 09/04 0000 Intake Total 240 840 Output Total Balance 240 840 Intake, Oral 240 840 Physical Exam General Appearance: Current Medications: Current Medications Sig/Femi Start time Last Medication Dose Route Stop Time Status Admin Acetaminophen 650 MG Q6P PRN 09/01 1615 DCD PO Enoxaparin Sodium 40 MG 1700 09/02 1700 DCD 09/03 SC 1613 Ibuprofen 600 MG Q6P PRN 09/01 1615 DCD 09/03 PO 2154 Lorazepam 1 MG Q8 09/05 0600 DC PO Lorazepam 1 MG Q12H 09/04 1800 DCD PO Lorazepam 1 MG Q6 09/04 0600 DC 09/04 PO 09/05 0000 0647 Lorazepam 1.5 MG Q6 09/03 1200 DC 09/04 PO 09/04 0300 0031 Lorazepam 0 Q1P PRN 09/02 1615 DCD 09/02 IV 2356 Multivitamins 1 TAB DAILY 09/01 1617 DCD 09/04 PO 0924 Nicotine 14 MG DAILY 09/02 1655 DCD 09/04 TOP 0924 Omeprazole 40 MG DAILY AC 09/01 1751 DCD 09/04 PO 0647 Ondansetron HCl 4 MG Q6P PRN 09/01 1630 DCD IV Oxycodone/ 1 TAB Q6P PRN 09/01 1615 DCD 09/03 Acetaminophen PO 0536 Assessment/Plan Assessment: This a 37-year-old gentleman with past medical history significant for hypertension, syncope, GERD, bilateral hip replacement in 2017, previous complicated EtOH detox who presented to the hospital requesting EtOH detox. Impression/plan #Etoh detox: Note than Aug 29 tox screen + for benzos, likely due to walk in clinic prescription. However, note that when admission to tried to pull him up on CT [employer] they couldn't pull up his profile with given information. * Continue with CIWA protocol and Ativan procedure well. * Ativan tapered down to 1.5 mg every 6 hours. * Continue with thiamine, multivitamin, folate, PPI * Social work consult placed * Magnesium and K normalized. * Phosphorus within normal limits #Transamanitis: AST 131, ALT 173. Not classic 2:1 ratio, but likely secondary to EtOH. * Improved * If worsens consider RUQ US #Hypernatremia-resolved * Presented with Na level of 147. Likely to decreased PO intake * DCed IVF #Elevated AG: * Likely 2/2 etoh. * Resolved. #HTN: * Presented with BP 155/87 then down to 133 systolic. * On admission, the patient stated he has baseline HTN but does not take any meds at home. As his BP and tachycardia seem to be improving will hold off on any pharmacologic mgmt other than managing withdrawl. * Likely withdrawl significant component of hypertension. Will manage via CIWA #Smoking: * Nicotine patch was not given on admission given patient had tachycardia. * Consider starting nicotine patch #DVT prophylaxis: * SC Lovenox #CODE STATUS: * Full code Chemical ppx Heart healthy diet. Problem List: 1. Alcohol intoxication 2. Alcohol withdrawal Pain Ratin Pain Location: 0 Pain Goal: 0 Pain Plan: 0 Tomorrow's Labs & Rationales: 0
[2017-09-04] MEDS ORDERED: ONE DAILY MULT1 EAC2 PO ×2 (11:23→11:31)
[2017-09-04] MEDS ORDERED: OMEPRAZOLE20 M2 PO ×2 (11:23→11:31)
--- NOTE | 2017-09-04 11:30 | Patient Discharge Instructions ---
Discharge Instructions General Discharge Information You were seen/treated for: ALCOHOL WITHDRAWAL Special Instructions: PLEASE FOLLW UP with your pcp in 1 week please follow up with psychiatrist in 1 week Diet Continue normal diet: Yes Activity Full Activity/No Limits: Yes Acute Coronary Syndrome Inclusion Criteria At DC or during hospital stay patient has or had the following: ACS DIAGNOSIS No Discharge Core Measures Meds if any: Prescribed or Continued at Discharge Meds if any: NOT Prescribed or Continued at Discharge Congestive Heart Failure Inclusion Criteria At DC or during hospital stay patient has or had the following: CHF DIAGNOSIS No Discharge Core Measures Meds if any: Prescribed or Continued at Discharge Meds if any: NOT Prescribed or Continued at Discharge Cerebrovascular accident Inclusion Criteria At DC or during hospital stay patient has or had the following: CVA/TIA Diagnosis No Discharge Core Measures Meds if any: Prescribed or Continued at Discharge Meds if any: NOT Prescribed or Continued at Discharge Venous thromboembolism Inclusion Criteria VTE Diagnosis No VTE Type NONE VTE Confirmed by (Test) NONE Discharge Core Measures - Per Current guidelines, there needs to be overlap - treatment for the first 5 days of Warfarin therapy. - If discharged on Warfarin prior to 5 days of - overlap therapy, the patient will need to be - assessed for post discharge needs including - *Post discharge parental anticoagulation - *Warfarin and/or parental anticoagulation education - *Follow up date to check INR post discharge At least 5 days overlap therapy as Inpatient No Meds if any: Prescribed or Continued at Discharge Note: Overlap Therapy is Warfarin and Anticoagulant Meds if any: NOT Prescribed or Continued at Discharge
--- NOTE | 2017-09-04 11:34 | Event Note ---
Event Note Event Note: Situation: Around 11 AM because the patient wanted to leave AMA,I went and had a discussion with the patient, I explained the risks of leaving AMA and that he needs to stay to complete his Ativan taper, and that leaving at this point with him at risk of severe withdrawal symptoms including seizure. However the patient insisted on leaving AMA, referral to outpatient psychiatry was provided, his meds were transmitted to his preferred pharmacy. Attending Dr. Caal, resident Jason were informed
--- NOTE | 2017-09-05 08:41 | Discharge Summary ---
Visit Information Visit Dates Admission Date: 09/01/17 Discharge Date: 09/04/17 Hospital Course Course Attending Physician: Oksana TAYLOR,Chen Paige Primary Care Physician: Sandra Marr APRN Hospital Course: This a 37-year-old gentleman with past medical history significant for hypertension, syncope, GERD, bilateral hip replacement in 2017, previous complicated EtOH detox who presented to the hospital requesting EtOH detox. Physical exam on admission: Temperature 97.4, pulse rate 110, respiratory rate 18, blood pressure 155/87, oxygen saturation 97% on room air. General Appearance Alert, Oriented X3, Cooperative, Mild Distress Skin No Significant Lesion HEENT Atraumatic, PERRLA, EOMI, Mucous Membr. moist/pink Neck Supple Cardiovascular tachycardic. regular s1/s2 Lungs Clear to Auscultation, Normal Air Movement Abdomen Soft, No Tenderness Extremities No Cyanosis, No Edema, Normal Pulses Pertinent labs on admission: Sodium 147, potassium 4, chloride 106, anion gap 17 , creatinine 0.7, glucose 112, WBC 5.8, glucose 1645, hematocrit 47.5, platelets 182, U tox positive for benzodiazepines, negative for opiates, methadone, barbiturate, cocaine. Serum alcohol level 32. The following problems were addressed during the course of his hospital stay: #Etoh detox: Note that Aug 29 tox screen + for benzos, likely due to walk in clinic prescription. However, note that when admission team tried to pull him up on CT [employer] they couldn't pull up his profile with given information. The patient was started on CIWA protocol, IV Ativan per CIWA and PO Ativan taper. The patient also received thiamine, multivitamin, folate, PPI. Social work consult was placed. He developed hypomagnesemia and hypokalemia during his hospital stay which normalized after repletion. Patient left AGAINST MEDICAL ADVICE before complete medical assessment in the morning of 09/04/2017. The risk of premature discharge was explained to him at length by the covering team. #Transamanitis: On admission, he had AST 131, ALT 173. Not classic 2:1 ratio, but likely secondary to EtOH. This improved during his hospital stay. #Hypernatremia-resolved: Presented with Na level of 147. Likely to decreased PO intake. Sodium level normalized after receiving IV fluids. #Elevated AG on admission: Likely 2/2 ETOH. Resolved. #HTN: Presented with BP 155/87 then down to 133 systolic. On admission, the patient stated he has baseline HTN but does not take any meds at home. As his BP and tachycardia continued to improve will held off on any pharmacologic management other than managing withdrawl. #Smoking:Nicotine patch was not given on admission given patient had tachycardia. #DVT prophylaxis: The patient received SC Lovenox. #CODE STATUS: Full code. Allergies: Coded Allergies: Penicillins (Severe, ANAPHYLAXIS 04/23/16) Disposition Summary Disposition Principal Diagnosis: Alcohol withdrawal Additional Diagnosis: Transaminitis Discharge Disposition: left against medical adv Discharge Instructions General Discharge Information Code Status: Full Code Patient's Diet: Heart healthy Patient's Activity: As tolerated Follow-Up Instructions/Appts: Follow-up with PCP in 1 week. Follow-up with psychiatrist in 1 week. Medications at Discharge Discharge Medications: Start taking the following new medications: Omeprazole (Omeprazole) 20 MG CAPSULE.DR 40 Milligram ORAL DAILY BEFORE BREAKFAST Qty = 30 No Refills Instructions: . Comments: Last Taken:09/04/17 Time: 0600AM Multivitamin (One Daily Multivitamin) 1 EACH TABLET 1 Tablet ORAL DAILY Qty = 30 No Refills Instructions: . Comments: Last Taken: 09/04/17 Time: 1000AM Copies To: Sandra Marr APRN
== END 2017-09-04 11:53 | disposition left against medical advice (07) | DRG 770 ==
LOC: ERH 08:45 → ERHI 14:43 → 2NB 14:43 → ENRESERV 19:24 → 2NB 21:15
PROVIDERS: Emergency Medicine; Internal Medicine; Student in an Organized Health Care Education/Training Program
DX: F10.239 Alcohol dependence with withdrawal, unspecified (principal); Y90.1 Blood alcohol level of 20-39 mg/100 ml; I10 Essential (primary) hypertension; R74.0 Nonspecific elevation of levels of transaminase and lactic acid dehydrogenase [LDH]; E87.0 Hyperosmolality and hypernatremia; Z96.643 Presence of artificial hip joint, bilateral; K21.9 Gastro-esophageal reflux disease without esophagitis; E83.42 Hypomagnesemia; E87.6 Hypokalemia; Z53.21 Procedure and treatment not carried out due to patient leaving prior to being seen by health care provider; F17.210 Nicotine dependence, cigarettes, uncomplicated
CPT/HCPCS: 2NBP; 36415; 80307; 81001; 82436; 93005; 93010; 96374; 96376; G0480; J1650; J3490

== ENCOUNTER 2017-10-21 10:04 | Inpatient (IN) | payer OTHER ==
[~2017-10-21] VITALS: Ht 182.9 cm; Wt 116.7 kg
[~2017-10-21 10:04] MED LIST changes: +OMEPRAZOLE20 M2 PO; +ONE DAILY MULT1 EAC2 PO
[2017-10-21 11:43] VITALS: BP 156/87
[2017-10-21 11:57] LABS: ABSOLUTE BASOPHIL COUNT 0 /CUMM (0.0-0.2); ABSOLUTE EOSINOPHIL COUNT 0 /CUMM (0.0-0.7); ABSOLUTE GRANULOCYTE CT 8.1 /CUMM (1.4-6.5); ABSOLUTE LYMPH COUNT 1.7 /CUMM (1.2-3.4); ABSOLUTE MONOCYTE COUNT 0.6 /CUMM (0.10-0.60); BASOPHIL % 0.2 % (0.0-2.0); EOSINOPHIL % 0.3 % (0-5); GRANULOCYTE % 77.5 % (42.2-75.2); HEMATOCRIT 48.2 % (42-52); MEAN CORPUSCULAR HGB 34.4 PG (27.0-31.0); MEAN CORPUSCULAR HGB CONC 35.4 G/DL (33.0-37.0); MEAN CORPUSCULAR VOLUME 97.3 FL (80.0-94.0); MEAN PLATELET VOLUME 7.1 FL (7.4-10.4); PLATELET COUNT 243 /CUMM (130-400); RBC DISTRIBUTION WIDTH 13.8 % (11.5-14.5); RED BLOOD CELL CT 4.96 /CUMM (4.70-6.10); WHITE BLOOD CELL COUNT 10.4 /CUMM (4.8-10.8)
--- NOTE | 2017-10-21 12:44 | ED GENERAL ADULT ---
History of Present Illness General Chief Complaint: General Adult Stated Complaint: DETOX/FLU Source: patient, family ([place]) Exam Limitations: no limitations Vital Signs & Intake/Output Vital Signs & Intake/Output Vital Signs Date Time Temp Pulse Resp B/P B/P Pulse O2 O2 Flow FiO2 Mean Ox Delivery Rate 10/21 1525 98.3 117 22 189/75 10/21 1523 98.3 111 20 189/75 94 Room Air 10/21 1317 100 20 121/66 10/21 1316 97.9 100 20 121/66 95 Room Air 10/21 1154 98 Room Air 10/21 1143 98.4 105 22 156/87 10/21 1009 97.9 132 18 111/74 97 Room Air Allergies Coded Allergies: Penicillins (Severe, ANAPHYLAXIS 04/23/16) Triage Note: PT COMPLAINS OF FLU LIKE SYMPTOMS SINCE LAST WEDNESDAY. N/V ACHEY ALL OVER. PT CONCERNED THAT HE MIGHT BE WITHDRAWING FROM ETOH, STATES THAT HE HAS BEEN SOBER X 1 MONTH AND THAT HE DRANK THE PAST 2 DAYS DUE TO HE FELT HE MIGHT BE WITHDRAWING FROM ETOH SO HE STARTED TO DRINK. STATES THAT HE HAS BEEN TAKING OLD ATIVAN ONCE IN AWHILE WHEN HE FEELS SHAKEY. PT VOMITTING AT TRIAGE, AFEBRILE AT THIS TIME Triage Nurses Notes Reviewed? yes Onset: Abrupt Duration: day(s): (1), constant, continues in ED, getting worse Timing: recent history Injury Environment: home Severity: mild, moderate Severity Numbers: 10 No Modifying Factors: none HPI: 37-year-old male past medical history of alcohol dependence and hypertension presents for evaluation of POSSIBLE alcohol withdrawal. Patient states that he had been sober for about one month and then 2 or 3 days ago started drinking again. He states that he is drank for 2 days straight. He doesn't know exactly how much she drank. He denies any previous history: Withdrawal seizures. He states that his last request last night. He woke up today feeling very shaky nauseous short of breath vomiting and sweaty. He states that he feels like he denies alcohol withdrawal. He also reports she's been taking Ativan intermittently over the past several weeks but states he does not take it every day. He denies any drug use. No chest pain hemoptysis lower extremity edema or recent surgery recent trauma. No suicidal or homicidal ideation. (Niko Weinstein) Past History Travel History Traveled to [place] past 21 day No Medical History Any Pertinent Medical History? see below for history Neurological: NONE EENT: NONE Cardiovascular: hypertension, syncope Respiratory: NONE Gastrointestinal: GERD Hepatic: NONE Renal: NONE Musculoskeletal: VASCULAR NECROSIS BI. 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 Psychosocial History Who do you live with Significant Other Services at Home None What is your primary language Yakut Tobacco Use: Current Daily Use Daily Tobacco Use Amount/Type: => 5 Cigarettes daily ETOH Use: alcoholic Illicit Drug Use: denies illicit drug use Family History Hx Contributory? No (Niko Weinstein) Review of Systems Review of Systems Constitutional: Reports: chills, diaphoresis, malaise, weakness. EENTM: Reports: no symptoms. Respiratory: Reports: see HPI, short of breath. Cardiovascular: Reports: no symptoms. GI: Reports: see HPI, nausea, vomiting. Genitourinary: Reports: no symptoms. Musculoskeletal: Reports: see HPI, muscle pain, muscle stiffness. Skin: Reports: no symptoms. Neurological/Psychological: Reports: anxiety. Hematologic/Endocrine: Reports: no symptoms. Immunologic/Allergic: Reports: no symptoms. All Other Systems: Reviewed and Negative (Niko Weinstein) Physical Exam Physical Exam General Appearance: well developed/nourished, alert, awake, anxious, moderate distress Head: atraumatic, normal appearance Eyes: Bilateral: normal appearance, PERRL, EOMI. Ears, Nose, Throat: normal pharynx, normal ENT inspection, hearing grossly normal Neck: normal inspection, supple, full range of motion Respiratory: normal breath sounds, chest non-tender, no respiratory distress, lungs clear Cardiovascular: normal peripheral pulses, tachycardia Peripheral Pulses: 2+ radial (R), 2+ radial (L) Gastrointestinal: normal bowel sounds, soft, non-tender, no organomegaly Back: normal inspection, normal range of motion, no vertebral tenderness Extremities: normal inspection, normal capillary refill, normal range of motion, no edema Neurologic/Psych: no motor/sensory deficits, awake, alert, oriented x 3 Skin: intact, normal color, diaphoresis Core Measures ACS in differential dx? No CVA/TIA Diagnosis: No Sepsis Present: No Sepsis Focused Exam Completed? No (Nakul AMADOR,Niko) Progress Differential Diagnoses I considered the following diagnoses in my evaluation of the patient: [Alcohol withdrawal, alcohol intoxication, electrolyte abnormality, benzodiazepine withdrawal, influenza, pneumonia, pulmonary embolism] Plan of Care: Orders Procedure Date/time Status Regular Diet 10/21 D Active Misc Message 10/21 1534 Active ED Holding Orders 10/21 1534 Active Admit to inpatient 10/21 1534 Active Vital Signs 10/21 1534 Active Code Status 10/21 1534 Active Patient Data 10/21 1525 Active Add-on Test (ER Only) 10/21 1425 Active Add-on Test (ER Only) 10/21 1412 Active PARTIAL THROMBOPLASTIN TIME 10/21 1135 Complete PROTHROMBIN TIME 10/21 1135 Complete B-TYPE NATRIURETIC PEP (BNP) 10/21 1135 Complete CIWA 10/21 1127 Active URINE DRUG SCREEN FOR ER ONLY 10/21 1127 Active URINALYSIS 10/21 1127 Active TROPONIN LEVEL 10/21 1127 Complete LIPASE 10/21 1127 Complete ETHANOL 10/21 1127 Complete D-DIMER 10/21 1127 Complete COMPREHENSIVE METABOLIC PANEL 10/21 1127 Complete CBC WITHOUT DIFFERENTIAL 10/21 1127 Complete EKG 10/21 1127 Active RAPID VIRAL INFLUENZA A 10/21 1014 Complete Current Medications Sig/Femi Start time Last Medication Dose Stop Time Status Admin Heparin Sodium 25,000 UNIT Q24H 10/21 1430 UNVr (Porcine) (Heparin) Sodium Chloride 500 ML Laboratory Tests 10/21/17 1135: Anion Gap 24 H, Estimated GFR > 60, BUN/Creatinine Ratio 14.0, Glucose 98, Calcium 9.9, Total Bilirubin 0.9, AST 137 H, ALT 138 H, Alkaline Phosphatase 138 H, Troponin I < 0.01, Wie-Z-Pxcyzsaihyn Pept < 11.1, Total Protein 7.8, Albumin 5.0, Globulin 2.8, Albumin/Globulin Ratio 1.8, Lipase 97, PT 11.1, INR 1.06, APTT 28, D-Dimer High Sensitivty 252 H, CBC w Diff NO MAN DIFF REQ, RBC 4.96, MCV 97.3 H, MCH 34.4 H, MCHC 35.4, RDW 13.8, MPV 7.1 L, Gran % 77.5 H, Lymphocytes % 16.2 L, Monocytes % 5.8, Eosinophils % 0.3, Basophils % 0.2, Absolute Granulocytes 8.1 H, Absolute Lymphocytes 1.7, Absolute Monocytes 0.6, Absolute Eosinophils 0, Absolute Basophils 0, Serum Alcohol 22.0 Microbiology 10/21 1015 NASOPHARYN: Influenza Virus A & B Rapid Smear - COMP Patient seen and evaluated. He has a history of alcohol withdrawal and alcohol dependence. He denies any alcohol withdrawal seizures. He is been drinking for several days TODAY feeling like he is in withdrawal. On initial evaluation he appears in significant distress. He is vomiting diaphoretic very anxious. His initial CIWA score was 24. ETOH level is 22. Patient was medicated with 2 mg IV Ativan and 2 mg Ativan by mouth. He is doing much better after this. Is also given 2 L normal saline IV Ativan. Patient is reporting shortness of breath has a mildly elevated d-dimer. This with the shortness of breath and tachycardia we 'll check a CTA of the chest to rule out pulmonary embolism. His lipase is within normal limits. She does have mildly elevated alkaline phosphatase and LFTs [place] there is no tenderness in the right upper quadrant or epigastric area. he will require admission for alcohol withdrawal. He'll require IV/by mouth Ativan, multiple CIWA exams, case management, serial labs, monitoring of vital signs. Case discussed with Dr. Lindsay he agrees. CTA came back positive for pulmonary emboli. No saddle PE. No evidence of right heart strain. Patient denies any blood in his stool. No recent surgery recent trauma no history of cancer. Patient continues to be tachycardic and reporting shortness of breath. He'll be heparinized. Additionally CIWA was 16 down from 24 another 2 mg of IV Ativan was ordered. Patient will be admitted to the hospital. Diagnostic Imaging: Viewed by Me: CT Scan. Discussed w/RAD: CT Scan. Radiology Impression: PATIENT: MABEL AQUINO PRESENT AGE: 37 PATIENT ACCOUNT NO: [id number] : 81 LOCATION: [facility] ORDERING PHYSICIAN: Niko AMADOR SERVICE DATE: 10/21/17 EXAM TYPE: CAT - CTA CHEST-PULMONARY EMBOLISM EXAMINATION: CT CHEST PE STUDY CLINICAL INFORMATION: Shortness of breath. Tachycardia. Presumptive diagnosis of pulmonary embolism. COMPARISON: Chest x-ray dated 08/29/2017. TECHNIQUE: Prior to contrast administration, localization images were obtained. After the administration of 125 and mL of intravenous Optiray 350, multidetector CT volume acquisition of the chest was performed. 3-D postprocessing was performed with multiplanar reconstructions and MIP images obtained at the acquisition workstation under concurrent physician supervision. DLP: 607.76 mGy-cm. FINDINGS: Pulmonary arteries: The bolus timing on this study was acceptable for visualization of the pulmonary arterial tree. There are very subtle filling defects seen within the distal segmental branches of the left lower lobe (example series 204, image 23 and 9). There are a few additional filling defects seen in several of the lower lobe arteries bilaterally, most consistent with artifact related to beam hardening and stairstep. Lungs: The lungs show biapical pleural-based reticulation, consistent with scarring. There is a tiny calcified granuloma in the right lower lobe (series 2, image 267). No pulmonary nodules, masses, pleural effusion or pneumothorax. The central airways are patent. Aorta and heart: The heart is normal in size. The mediastinum, aorta and great vessels are normal. There is no pericardial effusion Lymphatic structures: There is no lymphadenopathy. Upper abdomen: Diffuse hepatic steatosis. Limited evaluation of the upper abdominal viscera demonstrates no other focal abnormality. Bones: No significant focal findings. IMPRESSION: 1. Subtle distal segmental pulmonary arterial filling defects are seen in the left lower lobe, consistent with pulmonary emboli. Other filling defects in both lower lobes are also seen, but most likely reflect artifact as discussed above. 2. Other incidental findings include biapical scarring and tiny calcified granuloma in the right lower lobe and diffuse hepatic steatosis. This critical result was discussed with MARJORIE Mota , 10/21/2017, 2:11 PM and it was ascertained that the content and urgency of this report was understood at the time of direct communication. DICTATED BY: Emeli Rico MD DATE/TIME DICTATED:10/21/171332 FITTER TYPE BAR AND SEGMENT:TERRA DATE/TIME TRANSCRIBED:10/21/171332 CONFIDENTIAL, DO NOT COPY WITHOUT APPROPRIATE AUTHORIZATION. Initial ED EKG: SINUS RHYTHM, INCOMPLETE RIGHT BUNDLE-BRANCH BLOCK Rhythm Strip: sinus tachycardia (Niko Weinstein) Departure Departure Disposition: STILL A PATIENT Condition: Stable Clinical Impression Primary Impression: Pulmonary embolism Qualifiers: Pulmonary embolism type: other Chronicity: acute Acute cor pulmonale presence: without acute cor pulmonale Qualified Code: I26.99 - Other pulmonary embolism without acute cor pulmonale Secondary Impressions: Alcohol withdrawal Qualifiers: Complication of substance-induced condition: uncomplicated Qualified Code: F10.230 - Alcohol dependence with withdrawal, uncomplicated Referrals: Sandra Marr APRN (PCP/Family) Departure Forms: Customer Survey General Discharge Information Prescriptions: Current Visit Scripts No Known Home Medications Admission Note Spoke With: Melvin TAYLOR,Debbie Documentation of Exam: Documentation of any treatments & extenuating circumstances including Concerns Regarding Discharge (functional status, medication knowledge or non-compliance, living conditions, etc.) that warrant an admission rather than observation: [ Serial labs, IV heparin, anticoagulation, hypercoagulability workup, CIWA, IV Ativan, IV fluids, monitoring of vital signs, pulmonology consult] (Niko Weinstein) PA/CORD TIRE BUILDER Co-Sign Statement Statement: ED Attending supervision documentation- X I saw and evaluated the patient. I have also reviewed all the pertinent lab results and diagnostic results. I agree with the findings and the plan of care as documented in the PA's/CORD TIRE BUILDER's documentation. Patient presents for evaluation of flulike symptoms and alcohol withdrawal. Physical examination reveals a mildly tremulous gentleman who is otherwise alert conversant and cooperative. [] I have reviewed the ED Record and agree with the PA's/CORD TIRE BUILDER's documentation. [] Additions or exceptions (if any) to the PAs/CORD TIRE BUILDER's note and plan are summarized below: [] (Angélica TAYLOR,Leif Small) Critical Care Note Critical Care Note Critical Care Time: 30-74 min (Niko Weinstein)
[2017-10-21 13:17] VITALS: BP 121/66
--- NOTE | 2017-10-21 14:16 | CT SCAN REPORT ---
EXAMINATION: CT CHEST PE STUDY CLINICAL INFORMATION: Shortness of breath. Tachycardia. Presumptive diagnosis of pulmonary embolism. COMPARISON: Chest x-ray dated 08/29/2017. TECHNIQUE: Prior to contrast administration, localization images were obtained. After the administration of 125 and mL of intravenous Optiray 350, multidetector CT volume acquisition of the chest was performed. 3-D postprocessing was performed with multiplanar reconstructions and MIP images obtained at the acquisition workstation under concurrent physician supervision. DLP: 607.76 mGy-cm. FINDINGS: Pulmonary arteries: The bolus timing on this study was acceptable for visualization of the pulmonary arterial tree. There are very subtle filling defects seen within the distal segmental branches of the left lower lobe (example series 204, image 23 and 9). There are a few additional filling defects seen in several of the lower lobe arteries bilaterally, most consistent with artifact related to beam hardening and stairstep. Lungs: The lungs show biapical pleural-based reticulation, consistent with scarring. There is a tiny calcified granuloma in the right lower lobe (series 2, image 267). No pulmonary nodules, masses, pleural effusion or pneumothorax. The central airways are patent. Aorta and heart: The heart is normal in size. The mediastinum, aorta and great vessels are normal. There is no pericardial effusion Lymphatic structures: There is no lymphadenopathy. Upper abdomen: Diffuse hepatic steatosis. Limited evaluation of the upper abdominal viscera demonstrates no other focal abnormality. Bones: No significant focal findings. IMPRESSION: 1. Subtle distal segmental pulmonary arterial filling defects are seen in the left lower lobe, consistent with pulmonary emboli. Other filling defects in both lower lobes are also seen, but most likely reflect artifact as discussed above. 2. Other incidental findings include biapical scarring and tiny calcified granuloma in the right lower lobe and diffuse hepatic steatosis. This critical result was discussed with MARJORIE Mota , 10/21/2017, 2:11 PM and it was ascertained that the content and urgency of this report was understood at the time of direct communication.
[2017-10-21 14:29] LABS: PT 11.1 SEC (9.4-12.5); PTT 28 SEC (25-37)
[2017-10-21 15:25] VITALS: BP 189/75
--- NOTE | 2017-10-21 15:45 | History & Physical ---
Nelda Rush MD,[facility] 10/21/17 1544: General Information and HPI MD Statement: I have seen and personally examined MABEL AQUINO and documented this H&P. The patient is a 37 year old M who presented with a patient stated chief complaint of [alcohol detox and flu]. 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 Briefly patient was in usual state of health until 7 days ago that started to have cough, body ache, fever and chills. He also reported nausea and and episodes of non bloody vomiting. He reported resting in bed most of the time in the last couple of days. He reported an acute episode of chest pain in middle of the last night that woke him up, and lasted for few seconds. He also reported shortness of breathing in the last few weeks. ROS is negative except as noted above. Patient had contact with a sick person reported to have pneumonia. Patient was last admitted to [place] in Aug 2017 for alcohol detoxification. He denied any alcohol intake after discharge until last week; he reported that he almost drank 1 bottle of whiskey, last drink being half a bottle yesterday. Allergies/Medications Allergies: Coded Allergies: Penicillins (Severe, ANAPHYLAXIS 04/23/16) Past History Travel History Traveled to [place] past 21 day No Medical History Neurological: NONE EENT: NONE Cardiovascular: hypertension, syncope Respiratory: NONE Gastrointestinal: GERD Hepatic: NONE Renal: NONE Musculoskeletal: VASCULAR NECROSIS BI. 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 Past Family/Social History Psychosocial History Services at Home: None ETOH Use: alcoholic Illicit Drug Use: denies illicit drug use Review of Systems Review of Systems Constitutional: Reports: see HPI. Exam & Diagnostic Data Last 24 Hrs of Vital Signs/I&O Vital Signs Date Time Temp Pulse Resp B/P B/P Pulse O2 O2 Flow FiO2 Mean Ox Delivery Rate 10/21 1525 98.3 117 22 189/75 10/21 1523 98.3 111 20 189/75 94 Room Air 10/21 1317 100 20 121/66 03 1316 97.9 100 20 121/66 95 Room Air 10/21 1154 98 Room Air 10/21 1143 98.4 105 22 156/87 10/21 1009 97.9 132 18 111/74 97 Room Air Intake & Output 10/21 1600 10/21 0800 03 0000 Intake Total 1000 Output Total Balance 1000 Intake, IV 1000 Patient 250 lb Weight Physical Exam General Appearance Alert, Oriented X3, Cooperative, No Acute Distress, anxious, shaky, has tremor Skin No Significant Lesion Skin Temp/Moisture Exam: Warm/Dry (warm clammy) Sepsis Skin Exam (color): Normal for Ethnicity HEENT Atraumatic, EOMI, Mucous Membr. moist/pink Neck No JVD Cardiovascular Regular Rate, Normal S1, Normal S2 Lungs Clear to Auscultation Abdomen Soft, No Tenderness, No tenderness in RUQ or epigastric area Neurological Normal Speech, Strength at 5/5 X4 Ext, tremor Extremities No Cyanosis, No Edema Last 24 Hrs of Labs/Tello: Laboratory Tests 10/21/17 1725: Methadone Screen Pending, Barbiturate Screen Pending, Ur Phencyclidine Scrn Pending, Amphetamines Screen Pending, U Benzodiazepines Scrn Pending, Urine Cocaine Screen Pending, Urine Cannabis Screen Pending, Urine Color Pending, Urine Clarity Pending, Urine pH Pending, Ur Specific [place] Pending, Urine Protein Pending, Urine Ketones Pending, Urine Nitrite Pending, Urine Bilirubin Pending, Urine Urobilinogen Pending, Ur Leukocyte Esterase Pending, Ur Microscopic Pending, Urine Hemoglobin Pending, Urine Glucose Pending 10/21/17 1135: Anion Gap 24 H, Estimated GFR > 60, BUN/Creatinine Ratio 14.0, Glucose 98, Lactic Acid 5.1 H, Calcium 9.9, Total Bilirubin 0.9, AST 137 H, ALT 138 H, Alkaline Phosphatase 138 H, Troponin I < 0.01, Rqb-Y-Telqiyditli Pept < 11.1, Total Protein 7.8, Albumin 5.0, Globulin 2.8, Albumin/Globulin Ratio 1.8, Lipase 97, PT 11.1, INR 1.06, APTT 28, D-Dimer High Sensitivty 252 H, CBC w Diff NO MAN DIFF REQ, RBC 4.96, MCV 97.3 H, MCH 34.4 H, MCHC 35.4, RDW 13.8, MPV 7.1 L, Gran % 77.5 H, Lymphocytes % 16.2 L, Monocytes % 5.8, Eosinophils % 0.3, Basophils % 0.2, Absolute Granulocytes 8.1 H, Absolute Lymphocytes 1.7, Absolute Monocytes 0.6, Absolute Eosinophils 0, Absolute Basophils 0, Serum Alcohol 22.0 Microbiology 10/21 1015 NASOPHARYN: Influenza Virus A & B Rapid Smear - COMP Assessment/Plan Assessment: 37-year-old m presented to the ED requesting for alcohol detox, last drink 1/2 bottle whiskey yesterday Cough, fever and body ache for last week resting in bed for last couple of days episode of sharp chest pain last night PMH: HTN, syncope, GERD, 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 Subtle distal segmental pulmonary arterial filling defects are seen in the left lower lobe, consistent with pulmonary emboli. Other filling defects in both lower lobes are also seen, but most likely reflect artifact as discussed above. 2. Other incidental findings include biapical scarring and tiny calcified granuloma in the right lower lobe and diffuse hepatic steatosis. Patient was admitted to telemetry floor for management of following conditions: Cough, fever, weakness Patient is an patient is very suggestive of flu, however initial test was negative, considering sensitivity of the rapid flu test we will put patient on droplet isolation and repeat this tomorrow. -Admit to general medical floor -Hold Tamiflu -Repeat test tomorrow a.m. -Droplet isolation Pulm emboli Patient's clinical presentation was suggestive of pulmonary embolism, including increased d-dimer, history bed resting for the last several days, and sudden onset sharp pain last night. CTA showed PE. - VS - IV heparin Alcohol detox Patient had recent alcohol use. Lactic acid increased could be secondary to alcohol, or infarct secondary to PE. - ativan IV per CIWA - Ativan standing dose - multivit, thiamin, IV fluids FC DVT ppx: IV heparin, hold ALPS Regular As Ranked By This Provider Problem List: 1. Alcohol withdrawal Qualifiers Complication of substance-induced condition: uncomplicated Qualified Code: F10.230 - Alcohol dependence with withdrawal, uncomplicated 2. Pulmonary embolism Qualifiers Pulmonary embolism type: other Chronicity: acute Acute cor pulmonale presence: without acute cor pulmonale Qualified Code: I26.99 - Other pulmonary embolism without acute cor pulmonale Core Measures/Misc (05/09) Acute Coronary Syndrome ACS Diagnosis: No Congestive Heart Failure Congestive Heart Failure Diagnosis No Cerebrovascular Accident CVA/TIA Diagnosis: No VTE (View Protocol) VTE Risk Factors Age>40 No Mechanical VTE Prophylaxis d/t Medical Contraindication (possible DVT, PE on heparin) No VTE Pharm Prophylaxis d/t NA PharmProphylax ordered Sepsis (View protocol) Sepsis Present: No Antolin Whitaker 10/21/17 1710: Resident Review Statement Resident Statement: examined this patient, discussed with hospital intern, agreed with hospital intern, discussed with family, reviewed EMR data (avail), discussed with nursing , discussed with case mgmt, reviewed images, amended to note Other Findings: This a 37 yo male with PMH htn, syncope, GERD, bilat hip replacements in 2016, previous complicated EtOH detox which required ICU admission. His recent alcohol detox was in August 2017 in [facility]. After leaving [facility] he was sober for about 2 weeks. He started drinking about 10 days ago; vodka; 1 bottle for the past week his last drink was yesterday. In addition to that patient reports for the past week he has not been feeling very well. He developed symptoms of upper respiratory tract infection (congestion runny nose cough), feeling nauseous and recurrent vomitings. He denies abdominal pain and diarrhea. He also reports shortness of breath, mainly exertional, which first came to notice about 3 days ago and gradually got worse. He also had one episode of temporary retrosternal sharp chest pain which woke him up from the sleep this a.m. he denies any increasing swelling of his left lower extremities. On the related notes, due to his sickness he spent most of the time in bed for the past week. Review of system: As above Vital signs : 98.3, 117, 22, 189/75 Physical exam GA: Agitated and shaky; alert and oriented 3; head and neck: Within normal limits; CV: S1 and S2 no murmur; lungs: Clear; abdomen is soft normoactive no tenderness no guarding; no swelling of bilateral lower extremity pulses are intact. Pertinent data: Serum alcohol level 22; wells score for PE : PE is unlikely D-dimer 252( normal) ; adjusted d-dimer age: 500 Lactic acid 5.1; PH: 7.4/ pco2: 22, HCO3: 15>>> AG 24; hco3 15; AST 137, ALT 138, alkaline phosphatase 138; Troponin less than 0.01; proBNP less than 11 CT angiography: 1. Subtle distal segmental pulmonary arterial filling defects are seen in the left lower lobe, consistent with pulmonary emboli. I personally reviewed the CT scan: No pleural effusion; no radiologic evidence of restrained on the right ventricle; RV LV ratio below 0.9; pulmonary artery diameters less than 30mm. No extravasation of the contrast into the inferior vena cava and liver. PESI score: 1.1 Assessment This is a 37-year-old morbidly obese gentleman with complicated history of alcohol abuse and detox was admitted for subsegmental uncomplicated pulmonary embolism and alcohol detox. List of active problems plan #1 subsegmental pulmonary embolism: x1 episode of provoked subsegmental pulmonary embolism; without considerable clot burden on right ventricle. Low chances of mortality and complication. According to chest guidelines patient can safely be transitioned to oral anticoagulations preferably NOAC for at least 3 months. Echo needs to be obtained to assess the right ventricle. DVT needs to be ruled out. #2 EtOH detox. #3 transaminitis: secondary steatohepatitis, documented in the CT that steatohepatitis. Trending LFTs tomorrow. #4 AGMA w/respiratory alkalosis and underlying metabolic alkalosis and : Most possibly secondary to lactic acidosis in the setting of intractable nausea or vomiting and dehydration; IV hydration and trending lactic acid; expected decrease in lactic acid 20% every 2 h; Plan * Admit to general med * Obtain echo in the a.m. * Start eliquis 10 mg po BID for 7 days ( loading) and and then continue with 5 mg by mouth twice a day for at least 3 months- make the transition after active Detox * Obtain Doppler ultrasound of the lower extremity ruling out DVT * Ativan 2 mg every 6 standing dose * IV Ativan 2 mg every 2 hours per CIWA score * Psych consult in the a.m. * Trending LFTs * Obtain ultrasound of the gallbladder tomorrow * Continue IV hydration normal saline 500 mL per hour * Trending lactic acid every 2 h Full code DVT prophylaxis Housekeeping orders
--- NOTE | 2017-10-21 17:37 | PN- Att Addend ---
Attending Addendum Attending Brief Note 37-year-old male with past medical history significant for hypertension, syncope , GERD, history of replacement, history of alcohol use with recent admission to [facility] in August 2017 with alcohol intoxication and left AMA now presenting with feeling sick having stomach upset including nausea vomiting and some diarrhea. Patient was also feeling somewhat short of breath. Since his discharge from the hospital he is not back to work And has not been very active. Mostly sits or lays on the couch. For the last week or so he has been sick and nauseous. He claims that he develops diarrhea off and on for a number of years. He could not associate any relation to any specific food. He also does binge drinking and drank large amount since yesterday. In emergency room patient was found to be tachycardic. He remains tachycardic despite receiving Ativan. He had a slightly high d-dimer and follow-up chest CTA was consistent with pulmonary embolism. His EKG was consistent with sinus tachycardia. He was supposed to follow-up with outpatient oral rehabilitation program but he never did. He denies family history off any blood clots. Vital Signs Date Time Temp Pulse Resp B/P B/P Pulse O2 O2 Flow FiO2 Mean Ox Delivery Rate 10/21 1525 98.3 117 22 189/75 03/ 1523 98.3 111 20 189/75 94 Room Air 10/21 1317 100 20 121/66 03/ 1316 97.9 100 20 121/66 95 Room Air 10/21 1154 98 Room Air 10/21 1143 98.4 105 22 156/87 03/ 1009 97.9 132 18 111/74 97 Room Air on exam; aox3, nad. cv; s1, s2, rrr resp; clear abd; soft, nt, bs+ ext; no edema. Laboratory Tests 10/21 1135 Chemistry Sodium (137 - 145 mmol/L) 145 Potassium (3.5 - 5.1 mmol/L) 4.1 Chloride (98 - 107 mmol/L) 106 Carbon Dioxide (22 - 30 mmol/L) 15 L Anion Gap (5 - 16) 24 H BUN (9 - 20 mg/dL) 14 Creatinine (0.7 - 1.2 mg/dL) 1.0 Estimated GFR (>60 ml/min) > 60 BUN/Creatinine Ratio (7 - 25 %) 14.0 Glucose (65 - 99 mg/dL) 98 Lactic Acid (0.7 - 2.1 mmol/L) 5.1 H Calcium (8.4 - 10.2 mg/dL) 9.9 Total Bilirubin (0.2 - 1.3 mg/dL) 0.9 AST (17 - 59 U/L) 137 H ALT (21 - 72 U/L) 138 H Alkaline Phosphatase (< 127 U/L) 138 H Troponin I (<0.11 ng/ml) < 0.01 [id number]-[id number] Pept (<125 pg/mL) < 11.1 Total Protein (6.3 - 8.2 g/dL) 7.8 Albumin (3.5 - 5.0 g/dL) 5.0 Globulin (1.9 - 4.2 gm/dL) 2.8 Albumin/Globulin Ratio (1.1 - 2.2 %) 1.8 Lipase (23 - 300 U/L) 97 Coagulation PT (9.4 - 12.5 SEC) 11.1 INR (0.90 - 1.17) 1.06 APTT (25 - 37 SEC) 28 D-Dimer High Sensitivty (0 - 243 ng/ml) 252 H Hematology CBC w Diff NO MAN DIFF REQ WBC (4.8 - 10.8 /CUMM) 10.4 RBC (4.70 - 6.10 /CUMM) 4.96 Hgb (14.0 - 18.0 G/DL) 17.0 Hct (42 - 52 %) 48.2 MCV (80.0 - 94.0 FL) 97.3 H MCH (27.0 - 31.0 PG) 34.4 H MCHC (33.0 - 37.0 G/DL) 35.4 RDW (11.5 - 14.5 %) 13.8 Plt Count (130 - 400 /CUMM) 243 MPV (7.4 - 10.4 FL) 7.1 L Gran % (42.2 - 75.2 %) 77.5 H Lymphocytes % (20.5 - 51.1 %) 16.2 L Monocytes % (1.7 - 9.3 %) 5.8 Eosinophils % (0 - 5 %) 0.3 Basophils % (0.0 - 2.0 %) 0.2 Absolute Granulocytes (1.4 - 6.5 /CUMM) 8.1 H Absolute Lymphocytes (1.2 - 3.4 /CUMM) 1.7 Absolute Monocytes (0.10 - 0.60 /CUMM) 0.6 Absolute Eosinophils (0.0 - 0.7 /CUMM) 0 Absolute Basophils (0.0 - 0.2 /CUMM) 0 Toxicology Serum Alcohol (<10 MG/DL) 22.0 EKG> sinus tach. Chest CTA: IMPRESSION: 1. Subtle distal segmental pulmonary arterial filling defects are seen in the left lower lobe, consistent with pulmonary emboli. Other filling defects in both lower lobes are also seen, but most likely reflect artifact as discussed above. 2. Other incidental findings include biapical scarring and tiny calcified granuloma in the right lower lobe and diffuse hepatic steatosis. A/P; 37-year-old male with past medical history significant for hypertension, syncope, GERD, history of replacement, history of alcohol use with recent admission to [facility] in August 2017 with alcohol intoxication and left AMA now admitted with acute alcohol intoxication needing detox, nausea, vomiting and diarrhea as well as acute pulmonary embolism. Patient has not been very active in the last few weeks. This could be one of the risk factors for him developing pulmonary embolism. Patient was started on IV heparin which we will continue for now. He can be switched to oral anti-coagulation in the next 24 hours if remains stable. Also has abnl INR likley 2/2 to liver disease. He will need hypercoagulable workup as an outpatient. Please check lower extremity Doppler ultrasound. Patient will need to be started on scheduled and when necessary Ativan per [facility] protocol. He should also be started on multivitamin, folate and thiamine. Please check stool studies including stool culture and stool for C. difficile. We'll start the patient on clear liquid diet and if he tolerates well that the diet can be advanced. Patient will be hydrated with IV fluids. Social work should be consulted. Patient should have an outpatient GI follow-up for the diarrhea that he reports. Lactic acidosis AG high, trend lactate after IV hydration. DVT px: Heparin drip. Patient is a full code.
[2017-10-21 17:57] VITALS: BP 140/63
[2017-10-21 18:48] VITALS: BP 140/80
[2017-10-21 19:48] LABS: PTT 78 SEC (25-37)
[2017-10-21 22:00] VITALS: BP 140/80
[2017-10-22] VITALS (7 sets, daily range): BP systolic 113–162; BP diastolic 60–90
[2017-10-22 02:30] LABS: PTT 85 SEC (25-37)
[2017-10-22 08:28] LABS: PTT 87 SEC (25-37)
--- NOTE | 2017-10-22 08:46 | PN- Housestaff ---
Nelda Rush MD,[facility] 10/22/17 0845: Subjective Follow-up For: PE Alcohol detox R/O flu Subjective: Patient visited today, was lying in bed comfortably in no acute distress, was drowsy but arousable. CIWA: 3-8 overnight, standing dose and CIWA ativan in place No fever or chills, no shortness of breathing, no chest pain, no other events. Heparin changed to PO eliquse Review of Systems Constitutional: Reports: see HPI. Objective Last 24 Hrs of Vital Signs/I&O Vital Signs Date Time Temp Pulse Resp B/P B/P Pulse O2 O2 Flow FiO2 Mean Ox Delivery Rate 10/22 0620 98.3 77 20 162/90 92 Room Air 10/22 0600 98.3 77 20 162/90 10/22 0200 98.0 88 20 113/68 / 0200 98.0 88 20 113/68 91 Room Air 03/ 2200 97.6 72 20 140/80 03/ 2200 97.6 72 20 140/80 93 Room Air 03/ 1857 Room Air 03/ 1848 97.9 100 20 140/80 93 Room Air 03/ 1809 98.1 98 20 140/63 94 Room Air 03/01 1757 94 20 140/63 03/01 1525 98.3 117 22 189/75 03/01 1523 98.3 111 20 189/75 94 Room Air 03/01 1317 100 20 121/66 03/01 1316 97.9 100 20 121/66 95 Room Air 03/01 1154 98 Room Air 03/ 1143 98.4 105 22 156/87 03/01 1009 97.9 132 18 111/74 97 Room Air Intake & Output / 1600 03/02 0800 03/02 0000 Intake Total 840 680 Output Total 550 475 Balance 290 205 Intake, IV 600 200 Intake, Oral 240 480 Output, Urine 550 475 Patient 257 lb Weight Weight Bed scale Measurement Method Physical Exam General Appearance: Alert, Oriented X3, Cooperative, No Acute Distress, drowsy but arousable Skin: No Significant Lesion HEENT: Atraumatic, EOMI, Mucous Membr. moist/pink Cardiovascular: Normal S1, Normal S2 Lungs: Normal Air Movement Abdomen: Soft, No Tenderness Neurological: no tremor, no tong fasiculation Extremities: No Edema Current Medications: Current Medications Sig/Femi Start time Last Medication Dose Route Stop Time Status Admin Folic Acid 1 MG DAILY 10/21 1615 AC 10/22 PO 10/23 1001 0902 Heparin Sodium 0 .STK-MED ONE 10/21 1553 DC (Porcine) .ROUTE Heparin Sodium 0 .STK-MED ONE 10/21 1505 DC (Porcine) .ROUTE Heparin Sodium 5,000 UNIT ONCE ONE 10/21 1430 DC 10/21 (Porcine) IV 10/21 1431 1559 Heparin Sodium 25,000 UNIT Q24H 10/21 1430 AC 03 (Porcine) IV 0903 Sodium Chloride 500 ML Lorazepam 2 MG Q6 10/21 1800 DC 10/21 PO 10/22 0001 2354 Lorazepam 0 .STK-MED ONE 10/21 1625 DC .ROUTE Lorazepam 2 MG ONE ONE 10/21 1615 DC 10/21 IV 10/21 1616 1621 Lorazepam 2 MG Q2P PRN 10/21 1615 AC IV Lorazepam 1 MG Q2P PRN 10/21 1615 AC 10/22 IV 0914 Lorazepam 2 MG ONE ONE 10/21 1430 DC 03 IV 10/21 1431 1435 Lorazepam 0 .STK-MED ONE 10/21 1429 DC .ROUTE Lorazepam 0 .STK-MED ONE 10/21 1237 DC PO Lorazepam 2 MG ONCE ONE 10/21 1230 DC 03 PO 10/21 1231 1234 Lorazepam 0 .STK-MED ONE 10/21 1151 DC .ROUTE Lorazepam 2 MG ONE ONE 10/21 1130 DC 10/21 IV 10/21 1131 1151 Multivitamins 1 TAB DAILY 10/21 1615 AC 03 PO 0902 Ondansetron HCl 0 .STK-MED ONE 10/21 1151 DC .ROUTE Ondansetron HCl 4 MG ONCE ONE 10/21 1130 DC 10/21 IV 10/21 1131 1151 Sodium Chloride 1,000 ML BOLUS ONE 10/21 1745 DC 03 IV 10/21 1944 1745 Sodium Chloride 1,000 ML Q6H 10/21 1745 DC 10/22 IV 10/22 0444 0341 Sodium Chloride 1,000 ML BOLUS ONE 10/21 1245 DC 10/21 IV 10/21 1344 1253 Sodium Chloride 1,000 ML BOLUS ONE 10/21 1130 DC 10/21 IV 10/21 1229 1144 Thiamine HCl 100 MG DAILY 10/21 1615 AC 10/22 PO 10/23 1001 0902 Last 24 Hrs of Lab/Tello Results Last 24 Hrs of Labs/Mics: Laboratory Tests 10/22/17 0745: Anion Gap 11, Estimated GFR > 60, BUN/Creatinine Ratio 14.4, Total Bilirubin 1.1 , Direct Bilirubin 0.2, AST 97 H, ALT 105 H, Alkaline Phosphatase 109, Total Protein 6.2 L, Albumin 4.0, APTT 87 H, CBC w Diff Pending, WBC Pending, RBC Pending, Hgb Pending, Hct Pending, MCV Pending, MCH Pending, MCHC Pending, RDW Pending, Plt Count Pending, MPV Pending 10/22/17 0130: Lactic Acid 0.8, APTT 85 H 10/21/17 1905: Lactic Acid 0.7, APTT 78 H 10/21/17 1800: Lactic Acid Cancelled 10/21/17 1755: pH 7.41, pCO2 22 L, pO2 76 L, HCO3 13 L, ABG O2 Sat (Measured) 94.0 L, P-50 (Temp Corrected) N, Carboxyhemoglobin 0 L, O2 Concentration % R/A, Temperature 98.3, Phlebotomy Draw Site RIGHT BRACHIAL 10/21/17 1725: Urine Opiates Screen < 100, Methadone Screen < 40, Barbiturate Screen < 60, Ur Phencyclidine Scrn < 6.00, Amphetamines Screen < 100, U Benzodiazepines Scrn < 85, Urine Cocaine Screen < 50, Urine Cannabis Screen < 5.00, Urinalysis LIGHT H , Urine Color YEL, Urine Clarity HAZY H, Urine pH 6.0, Ur Specific [place] 1.020, Urine Protein TRACE H, Urine Ketones >=80, Urine Nitrite NEG, Urine Bilirubin NEG, Urine Urobilinogen 0.2, Ur Leukocyte Esterase NEG, Ur Microscopic SEDIMENT EXAMINED, Urine RBC 1-3, Urine WBC 1-3 H, Urine Mucus MOD H, Urine Hemoglobin NEG, Urine Glucose NEG 10/21/17 1135: Anion Gap 24 H, Estimated GFR > 60, BUN/Creatinine Ratio 14.0, Glucose 98, Lactic Acid 5.1 H, Calcium 9.9, Total Bilirubin 0.9, AST 137 H, ALT 138 H, Alkaline Phosphatase 138 H, Troponin I < 0.01, Poj-Y-Yydtzawhobd Pept < 11.1, Total Protein 7.8, Albumin 5.0, Globulin 2.8, Albumin/Globulin Ratio 1.8, Lipase 97, PT 11.1, INR 1.06, APTT 28, D-Dimer High Sensitivty 252 H, CBC w Diff NO MAN DIFF REQ, RBC 4.96, MCV 97.3 H, MCH 34.4 H, MCHC 35.4, RDW 13.8, MPV 7.1 L, Gran % 77.5 H, Lymphocytes % 16.2 L, Monocytes % 5.8, Eosinophils % 0.3, Basophils % 0.2, Absolute Granulocytes 8.1 H, Absolute Lymphocytes 1.7, Absolute Monocytes 0.6, Absolute Eosinophils 0, Absolute Basophils 0, Serum Alcohol 22.0 Microbiology 10/22 0800 NASOPHARYN: Influenza Virus A & B Rapid Smear - COLB 10/21 1015 NASOPHARYN: Influenza Virus A & B Rapid Smear - COMP Assessment/Plan Assessment: 37-year-old m presented to the ED requesting for alcohol detox, last drink 1/2 bottle whiskey yesterday Cough, fever and body ache for last week resting in bed for last couple of days episode of sharp chest pain last night PMH: HTN, syncope, GERD, 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 Subtle distal segmental pulmonary arterial filling defects are seen in the left lower lobe, consistent with pulmonary emboli. Other filling defects in both lower lobes are also seen, but most likely reflect artifact as discussed above. 2. Other incidental findings include biapical scarring and tiny calcified granuloma in the right lower lobe and diffuse hepatic steatosis. Patient was admitted to telemetry floor for management of following conditions: Cough, fever, weakness Patient is an patient is very suggestive of flu, however initial test was negative, considering sensitivity of the rapid flu test we will put patient on droplet isolation and repeat this tomorrow. -Admit to general medical floor - Repeated test negative -Droplet isolation discontinued Pulm emboli Patient's clinical presentation was suggestive of pulmonary embolism, including increased d-dimer, history bed resting for the last several days, and sudden onset sharp pain last night. CTA showed PE. - VS - IV heparin changed to eliquse - continue eliquse Alcohol detox Patient had recent alcohol use. Lactic acid increased could be secondary to alcohol, or infarct secondary to PE. - ativan IV per CIWA - Ativan standing dose - multivit, thiamin, IV fluids FC DVT ppx: IV heparin, hold ALPS Regular Problem List: 1. Pulmonary embolism 2. Alcohol withdrawal Pain Ratin Pain Location: none Pain Goal: Pain 4 or less Pain Plan: Continue current plan Tomorrow's Labs & Rationales: CBC BEP Dustin Marsh 10/22/17 1209: Attending MD Review Statement Attending Statement Attending MD Statement: examined this patient, discuss w/resident/PA/INSPECTOR SOLDERING, agreed w/resident/PA/INSPECTOR SOLDERING, discussed with family, reviewed EMR data (avail), discussed with nursing, discussed with case mgmt, reviewed images, amended to note Attending Assessment/Plan: Patient admitted for alcohol intoxication with hemodynamically stable PE and impending delirium tremnes. labs and imaging noted. Patient on iv heparin drip as per admitting physician. Patient seen/examined bedside. Patient denies any new complaints. His LIANET on admission 22. Patient is on CIMD protocol for impending delirium tremens. Patient switch to oral NOAC from heparin drip. Patient denies bleeding or other major complaints. Thiamine, folic acid daily, ativan as per CIWA. Referral to o/ p Hematology/oncology at discharge. gi/dvt prophylaxis.
[2017-10-22 10:38] LABS: ABSOLUTE BASOPHIL COUNT 0 /CUMM (0.0-0.2); ABSOLUTE EOSINOPHIL COUNT 0.1 /CUMM (0.0-0.7); ABSOLUTE LYMPH COUNT 1.5 /CUMM (1.2-3.4); ABSOLUTE MONOCYTE COUNT 0.5 /CUMM (0.10-0.60); BASOPHIL % 0.2 % (0.0-2.0); EOSINOPHIL % 1.5 % (0-5); GRANULOCYTE % 64.8 % (42.2-75.2); MEAN CORPUSCULAR HGB 34.2 PG (27.0-31.0); MEAN CORPUSCULAR VOLUME 97.8 FL (80.0-94.0); MEAN PLATELET VOLUME 7.7 FL (7.4-10.4); PLATELET COUNT 176 /CUMM (130-400); RBC DISTRIBUTION WIDTH 13.7 % (11.5-14.5); RED BLOOD CELL CT 4.34 /CUMM (4.70-6.10); WHITE BLOOD CELL COUNT 6.1 /CUMM (4.8-10.8)
[2017-10-22 10:40] LABS: HEMATOCRIT 42.4 % (42-52)
[2017-10-22] MEDS ORDERED: ELIQUIS5 M1 PO (17:18)
--- NOTE | 2017-10-22 17:20 | Patient Discharge Instructions ---
Discharge Instructions General Discharge Information You were seen/treated for: Pulmonary embolism Alcohol withdrawal Watch for these problems: Acute chest pain, shortness of breathing, dizziness, tremor, seizure-like activities or worsening of any other symptoms Special Instructions: Please follow with your PCP within one week of discharge. Please stop drinking alcohol. Diet Continue normal diet: Yes Activity Full Activity/No Limits: No Activity Self Limited: Yes Acute Coronary Syndrome Inclusion Criteria At DC or during hospital stay patient has or had the following: ACS DIAGNOSIS No Discharge Core Measures Meds if any: Prescribed or Continued at Discharge Meds if any: NOT Prescribed or Continued at Discharge Congestive Heart Failure Inclusion Criteria At DC or during hospital stay patient has or had the following: CHF DIAGNOSIS No Discharge Core Measures Meds if any: Prescribed or Continued at Discharge Meds if any: NOT Prescribed or Continued at Discharge Cerebrovascular accident Inclusion Criteria At DC or during hospital stay patient has or had the following: CVA/TIA Diagnosis No Discharge Core Measures Meds if any: Prescribed or Continued at Discharge Meds if any: NOT Prescribed or Continued at Discharge Venous thromboembolism Inclusion Criteria VTE Diagnosis Yes VTE Type Pulmonary Embolism VTE Confirmed by (Test) CT CHEST ANGIOGRAM Discharge Core Measures - Per Current guidelines, there needs to be overlap - treatment for the first 5 days of Warfarin therapy. - If discharged on Warfarin prior to 5 days of - overlap therapy, the patient will need to be - assessed for post discharge needs including - *Post discharge parental anticoagulation - *Warfarin and/or parental anticoagulation education - *Follow up date to check INR post discharge At least 5 days overlap therapy as Inpatient No (Not needed, eliquise) Meds if any: Prescribed or Continued at Discharge Note: Overlap Therapy is Warfarin and Anticoagulant Meds if any: NOT Prescribed or Continued at Discharge
[2017-10-23] VITALS (8 sets, daily range): BP systolic 118–150; BP diastolic 70–100
--- NOTE | 2017-10-23 09:03 | PN- Housestaff ---
See Addendum Subjective Follow-up For: PE Alcohol Detox Subjective: Patient was seen and examined at bedside. States he only got a couple of hours of sleep last night. Does not offer any active complaints today. Review of Systems Constitutional: Reports: no symptoms. Objective Last 24 Hrs of Vital Signs/I&O Vital Signs Date Time Temp Pulse Resp B/P B/P Pulse O2 O2 Flow FiO2 Mean Ox Delivery Rate 10/23 0800 Room Air 10/23 0601 97.4 75 20 118/84 94 Room Air 10/23 0600 97.4 75 20 118/84 10/23 0100 97.9 74 20 128/80 03/03 0030 97.9 74 20 128/80 94 Room Air 03/ 2246 98.3 87 20 130/80 94 Room Air / 2200 98.3 87 20 130/80 /02 1600 96 Room Air / 1345 98.2 100 20 114/60 95 Room Air Intake & Output 10/23 1600 10/23 0800 10/23 0000 Intake Total 1210 490 Output Total Balance 1210 490 Intake, IV 10 10 Intake, Oral 1200 480 Physical Exam General Appearance: Alert, Oriented X3, Cooperative, No Acute Distress Skin: No Rashes, No Breakdown Skin Temp/Moisture Exam: Warm/Dry Sepsis Skin Exam (color): Normal for Ethnicity HEENT: Atraumatic Cardiovascular: Normal S1, Normal S2, No Murmurs Lungs: Clear to Auscultation, Normal Air Movement Abdomen: Soft, No Tenderness Neurological: Normal Speech Extremities: No Edema Assessment/Plan Assessment: 37-year-old m presented to the ED requesting for alcohol detox, last drink 1/2 bottle whiskey a day prior admission to ED. He has also been experiencing cough, fever and weakness for the past week. 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 * His flu swab was negative x2 * symptmatic treatment. Pulm emboli * Continue Apixaban 10mg BID for now. * Patient currently at room air. Denies any difficulty breathing or any other associated symptoms. * Echo showed normal LVEF of >60% Alcohol detox: * CIWA in the last 24 hours have been low. * Continue Ativan per CIWA. FC DVT ppx:Eliquis Regular Problem List: 1. Pulmonary embolism Pain Ratin Pain Location: none Pain Goal: Remain pain free Pain Plan: none Tomorrow's Labs & Rationales: CBC
--- NOTE | 2017-10-23 10:34 | ECHOCARDIOGRAM REPORT ---
MABEL AQUINO Age: 37 : 1980 Gender: M Exam Date: 10/22/2017 08:19 Exam Location: [place] Ht (in): 72 Wt (lb): 257 BSA: 2.47 BP: 189 / 75 Ordering Physician: Ten Obrien MD Referring Physician: Ten Obrien MD Technologist: Shadi Apodaca [facility] Room Number: 222-1 Indications: ACUTE PULMONARY EMBOLISM Rhythm: Sinus Technical Quality: Good FINDINGS Left Ventricle Mild left ventricular dilatation. Normal left ventricular wall thickness. Normal left ventricular diastolic filling pattern for age. Normal left ventricular ejection fraction visually estimated at >60 %. No obvious regional wall motion abnormalities. Right Ventricle Normal right ventricular size and function. Right Atrium Normal right atrial size. Left Atrium Normal left atrial size. Mitral Valve Structurally normal mitral valve. No mitral regurgitation. Aortic Valve Diffuse thickening (sclerosis) of the aortic valve cusps without reduced excursion. No aortic stenosis. No aortic regurgitation. Tricuspid Valve Tricuspid valve not well visualized, grossly normal. Trace tricuspid regurgitation. No evidence of pulmonary hypertension. Pulmonic Valve Pulmonic valve not well visualized, grossly normal. Pericardium No pericardial effusion. Great Vessels Normal size aortic root. CONCLUSIONS Mild left ventricular dilatation. Normal left ventricular ejection fraction visually estimated at > 60 %. Trace tricuspid regurgitation. Trace tricuspid regurgitation. Glen Spencer M.D. (Electronically Signed) Final Date: 23 October 2017 10:33 MEASUREMENTS (Male / Female) Normal Values 2D ECHO LV Diastolic Diameter PLAX 6.2 cm 4.2 - 5.9 / 3.9 - 5.3 cm LV Systolic Diameter PLAX 3.9 cm 2.1 - 4.0 cm LV Fractional Shortening PLAX 37.1 % 25 - 46 % LV Ejection Fraction 2D Teich 66.0 % IVS Diastolic Thickness 1.0 cm LVPW Diastolic Thickness 1.1 cm LV Relative Wall Thickness 0.3 RV Internal Dim ED PLAX 3.4 cm 1.9 - 3.8 cm LVOT Diameter 2.4 cm Aortic Root Diameter 3.2 cm LA Systolic Diameter LX 3.6 cm 3.0 - 4.0 / 2.7 - 3.8 cm LA Volume 34.0 cm 18 - 58 / 22 - 52 cm Ascending Aorta Diameter 3.1 cm DOPPLER AV Peak Velocity 142.0 cm/s AV Peak Gradient 8.1 mmHg AV Mean Velocity 91.9 cm/s AV Mean Gradient 4.0 mmHg AV Velocity Time Integral 27.4 cm LVOT Peak Velocity 80.5 cm/s LVOT Peak Gradient 2.6 mmHg LVOT Mean Velocity 55.4 cm/s LVOT Mean Gradient 1.0 mmHg LVOT Velocity Time Integral 15.3 cm LVOT Stroke Volume 69.2 cm AV Area Cont Eq vti 2.5 cm AV Area Cont Eq pk 2.6 cm MV Peak Velocity 80.0 cm/s MV Peak Gradient 2.6 mmHg MV Mean Velocity 55.6 cm/s MV Mean Gradient 1.0 mmHg Mitral E Point Velocity 77.5 cm/s Mitral A Point Velocity 58.2 cm/s Mitral E to A Ratio 1.3 MV PHT Velocity 88.2 cm/s MV Deceleration [place] 386.0 cm/s MV Pressure Half Time 68.5 ms MV Area PHT 3.2 cm MV Deceleration Time 215.0 ms PV Peak Velocity 85.5 cm/s PV Peak Gradient 2.9 mmHg PV Mean Velocity 68.5 cm/s PV Mean Gradient 2.0 mmHg PV Velocity Time Integral 20.0 cm LV E' Lateral Velocity 9.9 cm/s Mitral E to LV E' Lateral Ratio 7.8 LV E' Septal Velocity 9.0 cm/s Mitral E to LV E' Septal Ratio 8.6
[2017-10-24 06:00] VITALS: BP 130/90
[2017-10-24 07:06] VITALS: BP 130/90
[2017-10-24 08:00] VITALS: BP 130/90
--- NOTE | 2017-10-24 08:40 | PN- Housestaff ---
See Addendum Subjective Follow-up For: PE Subjective: Patient was seen and examined at bedside. States he didn't get much sleep last night and had nightmares. He was advised to not consume high sugar, ccaffeinated beverages before bedtime. No other active complaints. No issues overnight. Review of Systems Constitutional: Reports: no symptoms. Objective Last 24 Hrs of Vital Signs/I&O Vital Signs Date Time Temp Pulse Resp B/P B/P Pulse O2 O2 Flow FiO2 Mean Ox Delivery Rate 10/24 705 97.9 72 20 130/90 94 Room Air 10/23 2200 98.2 73 20 136/94 93 Room Air 10/23 2000 98.2 73 16 140/100 10/23 1600 97.5 95 20 150/70 10/23 1347 97.5 95 20 150/70 95 Room Air Intake & Output 10/24 1600 10/24 0800 10/24 0000 Intake Total 600 Output Total Balance 600 Intake, Oral 600 Physical Exam General Appearance: Alert, Oriented X3, Cooperative, No Acute Distress Skin: No Rashes, No Breakdown Skin Temp/Moisture Exam: Warm/Dry Sepsis Skin Exam (color): Normal for Ethnicity HEENT: Atraumatic Cardiovascular: Normal S1, Normal S2, No Murmurs Lungs: Clear to Auscultation, Normal Air Movement Abdomen: Soft, No Tenderness Neurological: Normal Speech Extremities: No Edema Assessment/Plan Assessment: 37-year-old m presented to the ED requesting for alcohol detox, last drink 1/2 bottle whiskey a day prior admission to ED. He has also been experiencing cough, fever and weakness for the past week. 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 * His flu swab was negative x2 * symptmatic treatment. * Patient advised to keep himself well hydrated and take robitussin for the cough once discharged. Pulm emboli * Continue Apixaban 10mg BID for now. * Patient currently at room air. Denies any difficulty breathing or any other associated symptoms. * Echo showed normal LVEF of >60% * Will continue Eliquis as dosing for pulmonary emboli. Alcohol detox: * CIWA in the last 24 hours have been 0 * Can be discontinued off Ativan * Patient stable to be discharged. FC DVT ppx:Eliquis Regular Problem List: 1. Pulmonary embolism Pain Ratin Pain Location: none Pain Goal: Remain pain free Pain Plan: none Tomorrow's Labs & Rationales: none
[2017-10-24] MEDS ORDERED: ELIQUIS5 M1 PO ×2 (09:01→09:02)
[2017-10-24 09:31] LABS: ABSOLUTE BASOPHIL COUNT 0 /CUMM (0.0-0.2); ABSOLUTE EOSINOPHIL COUNT 0.2 /CUMM (0.0-0.7); ABSOLUTE GRANULOCYTE CT 3.1 /CUMM (1.4-6.5); ABSOLUTE LYMPH COUNT 1.6 /CUMM (1.2-3.4); ABSOLUTE MONOCYTE COUNT 0.5 /CUMM (0.10-0.60); BASOPHIL % 0.4 % (0.0-2.0); EOSINOPHIL % 3.2 % (0-5); GRANULOCYTE % 57.6 % (42.2-75.2); HEMATOCRIT 45.4 % (42-52); MEAN CORPUSCULAR HGB 34.5 PG (27.0-31.0); MEAN CORPUSCULAR HGB CONC 34.8 G/DL (33.0-37.0); MEAN CORPUSCULAR VOLUME 99.1 FL (80.0-94.0); MEAN PLATELET VOLUME 7.6 FL (7.4-10.4); PLATELET COUNT 178 /CUMM (130-400); RBC DISTRIBUTION WIDTH 13.9 % (11.5-14.5); RED BLOOD CELL CT 4.58 /CUMM (4.70-6.10); WHITE BLOOD CELL COUNT 5.4 /CUMM (4.8-10.8)
--- NOTE | 2017-10-25 09:01 | Discharge Summary ---
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 Subtle distal segmental pulmonary arterial filling defects are seen in the left lower lobe, consistent with pulmonary emboli. Other filling defects in both lower lobes are also seen, but most likely reflect artifact as discussed above. 2. Other incidental findings include biapical scarring and tiny calcified granuloma in the right lower lobe and diffuse hepatic steatosis. Patient was admitted to telemetry floor for management of following conditions: Pulm emboli Patient's clinical presentation was suggestive of pulmonary embolism, including increased d-dimer, history bed resting for the last several days, and sudden onset sharp pain last night. CTA showed PE confirming diagnosis. Patient was initially started on IV heparin, was then changed to Eliquise 10 mg with plan to change to 5 mg after 5 days. Alcohol detox Patient had recent alcohol use. Patient was placed on CIWA, Ativan IV and ativan sliding dose. multivit, thiamin, IV fluids were administered. With improvement of CIWA patient was discharged. Cough, fever, weakness Despite patient's history was very suggestive of flu, he was tested twice and continued to be negative. This was most likely a viral disease which resolved but resulted in pulmonary embolism due to inactivity. We monitored patient to admission and with improvement he was discharged. Patient was discharged with recommendations below. Allergies: Coded Allergies: Penicillins (Severe, ANAPHYLAXIS 04/23/16) Discharge Instructions Medications at Discharge Discharge Medications: Start taking the following new medications: Apixaban (Eliquis) 5 MG TABLET 0 ORAL SEE INSTRUCTIONS Qty = 60 No Refills Instructions: Please take as follows: 2tablets (10mg total) , 2 times a day till 36 after that take 1 tablet (5mg), 2 times a day Comments: Last Taken:10/24/17 Time:08:43A.M Please take as follows: 2tablets (10mg total) , 2 times a day till 36 after that take 1 tablet (5mg), 2 times a day
== END 2017-10-24 10:41 | DRG 134 ==
LOC: ERH 10:04 → 2NA 15:34 → ERHI 15:34 → ENRESERV 17:37 → ENTRNSPT 18:05 → EDTRNSPTSTS 18:21 → 2NA 18:38 → CMPTRNSPT 18:44 → 2NA 19:17 → ENPENDDIS 10-24 09:54 → 2NA 10-24 10:41
PROVIDERS: Internal Medicine; Physician Assistant Medical; Radiology Vascular & Interventional Radiology; Student in an Organized Health Care Education/Training Program
DX: I26.99 Other pulmonary embolism without acute cor pulmonale (principal); F10.20 Alcohol dependence, uncomplicated; E87.2 Acidosis; R74.0 Nonspecific elevation of levels of transaminase and lactic acid dehydrogenase [LDH]; I10 Essential (primary) hypertension; K21.9 Gastro-esophageal reflux disease without esophagitis; Z96.643 Presence of artificial hip joint, bilateral
CPT/HCPCS: 2NAP; 36415; 36592; 80307; 81001; 82436; 87804; 87804-59; 93005; 93010; 93306; 96374; 96375; 99291; G0480; J1644; J2405; J3490